=== PATIENT | female | born 1965 | race African-American/Black ===

== ENCOUNTER 2016-10-28 11:21 | Emergency (ER) | payer MEDICAID ==
[~2016-10-28] VITALS: Ht 157.5 cm; Wt 145.0 kg
[2016-10-28] VITALS (7 sets, daily range): BP systolic 153–209; BP diastolic 91–142; PULSE 106–140; RESP 12–24; TEMP 98.8; O2SAT 98–100
[~2016-10-28 11:21] MED LIST: AMLO10TA2 PO; CLON0.2T PO; COLY4000S PO; CYCL1TAB29 PO; HYDR25TA35 PO; METO-309 PO; MOBI15TA PO; PERC7.5T13 PO; PRIL10CA PO; PROM25TA5 PO; TRAM50TA PO; ULTR50TA5 PO; VENTAER INH
[2016-10-28] MEDS ORDERED: cloNIDine HCL 0.2 MG TAB PO ONE (11:45)
[2016-10-28] MEDS ORDERED: KETOROLAC TROMETHAMINE 60 MG/2 ML (IM) VIAL IM ONE (11:45)
--- NOTE | 2016-10-28 11:48 | PD ---
HPI Chief Complaint: Wound/Suture/Staple Re-Check Time Seen by Provider: 11:32 Travel History International Travel<30 days: No Contact w/Intl Traveler<30days: No Traveled to known affect area: No History of Present Illness HPI Patient is a 51-year-old female well known to myself who presents the emergency department for wound check. In the end of 2015, proximal leg 1.5 months ago patient had a microperforation of her previous jejunal anastomosis and was admitted for pneumoperitoneum underwent exploratory laparotomy and incisional hernia repair. Patient postoperative course complicated by dehiscence of the skin in the mid abdomen, likely due to her morbid obesity. Her fashion has remained intact. Patient has been seen multiple times in our emergency department over the course the last month for pain at her surgical dehiscence site. Seen previously by myself, Dr. Gallego and treated with dalvance for possible infection at her dehiscence site. Patient states that the area is getting larger and she has pain when she tries to do dressing changes at home. No fevers or chills. Patient states that she's been out of her clonidine for several days and was notably hypertensive and tachycardic in triage. PFSH Past Medical History Arthritis: Yes Blood Disorders: No Anxiety: Yes Depression: Yes Heart Rhythm Problems: No Cancer: No Cardiovascular Problems: Yes High Cholesterol: Yes Chest Pain: Yes Congestive Heart Failure: Yes COPD: Yes (Wears Home 02 ) Cerebrovascular Accident: Yes ("slight" stroke) Diminished Hearing: No Endocrine: No Gastrointestinal Disorders: Yes (MORBID OBESITY) GERD: Yes Genitourinary: Yes (Polyuria) Hiatal Hernia: Yes Hypertension: Yes Immune Disorder: No Inguinal Hernia: Yes Implanted Vascular Access Dvce: No Musculoskeletal: Yes Neurologic: Yes (Stroke 2003) Psychiatric: Yes Reproductive: No Respiratory: Yes Immunizations Current: No Sickle Cell Disease: No Thyroid Disease: No Ulcer: Yes ?: Not Menopausal: Yes : 3 Para: 3 Miscarriage: 0 : 0 Tubal Ligation: Yes Past Surgical History Abdominal Surgery: Yes (Gastric bypass, hernia repair x3) Cardiac Surgery: No Section: Yes (X3) Ear Surgery: No Endocrine Surgery: No Eye Surgery: Yes (Right eye removed from [facility] 20 years ago) Genitourinary Surgery: No Gynecologic Surgery: Yes (C-Sectionx3, Tubal ligation) Oral Surgery: No Thoracic Surgery: No Other Surgery: Yes (GASTRIC BYPASS 1996) Social History Alcohol Use: No Tobacco Use: Yes (12ppd) Substance Use: No Allergies-Medications (Allergen,Severity, Reaction): Coded Allergies: Morphine (Verified Allergy, Severe, ITCH, 10/28/16) PT DENIES Lisinopril (Verified Allergy, Unknown, 10/28/16) Reported Meds & Prescriptions Reported Meds & Active Scripts Active Clonidine (Clonidine HCl) 0.2 Mg Tab 0.2 Mg PO TID Mobic (Meloxicam) 15 Mg Tab 15 Mg PO DAILY Percocet (Oxycodone-Acetaminophen) 7.5-325 mg Tab 1 Tab PO Q6H PRN Amlodipine (Amlodipine Besylate) 10 Mg Tab 10 Mg PO DAILY Hydralazine (Hydralazine HCl) 25 Mg Tab 25 Mg PO Q8HR Reported Ventolin Hfa 18 GM Inh (Albuterol Sulfate) 90 Mcg/Act Aer 2 Puff INH Q6H PRN Prilosec (Omeprazole) 10 Mg Cap 10 Mg PO DAILY Review of Systems ROS Limitations: Poor Historian Except as stated in HPI: all other systems reviewed are Neg Physical Exam Exam Limitations: Poor Historian Narrative GENERAL: Morbidly obese disheveled female well-appearing, similar to previous visits SKIN: Warm and dry. HEAD: Normocephalic. EYES: No scleral icterus. No injection or drainage. ENT: Mucous membranes pink and moist. NECK: Supple CARDIOVASCULAR: Tachycardic with heart rate in the 140s. This normalized quickly into the 120s well patient resting in bed. No murmur appreciated. RESPIRATORY: No accessory muscle use. GASTROINTESTINAL: Morbidly obese. Soft, nontender, nondistended. Patient has a 5.5 x 4 cm area of dehiscence on her abdomen, 3 cm deep. The wound is pink and well-perfused with good granulation tissue. No discharge, purulence. MUSCULOSKELETAL: Ambulatory without difficulty NEUROLOGICAL: Awake and alert. Normal speech. PSYCHIATRIC: Appropriate mood and affect; insight and judgment normal. Data Data Last Documented VS Vital Signs Date Time Temp Pulse Resp B/P Pulse Ox O2 Delivery O2 Flow Rate FiO2 10/28/16 14:37 117 24 153/108 99 Room Air 10/28/16 11:25 98.8 Orders Clonidine (Catapres) (10/28/16 11:45) Ketorolac Inj (Toradol Inj) (10/28/16 11:45) Electrocardiogram (10/28/16 ) Metoprolol Tartrate Inj (Lopressor Inj) (10/28/16 13:15) [facility] Medical Decision Making Medical Screen Exam Complete: Yes Emergency Medical Condition: Yes Medical Record Reviewed: Yes Differential Diagnosis 51-year-old female approximate 1.5 months status post exploratory laparotomy with dehiscence of her abdominal skin, chronic and has been present for more than a month here with persistent pain. Patient's incision actually looks really good comparative with you when I saw her in September. There is now pink granulation tissue, no evidence of purulence. The abdomen itself is obese, but nontender and similar to previous exams. Ultimately, patient does struggle with chronic pain and some drug seeking behavior making multiple references to Dilaudid on her visit today, but certainly would benefit from home health. When I saw her last a referral was made but she was unable to get this done it. She has since however had a change in health care insurance and we will attempt to arrange this again as patient would certainly benefit from home wound care. Patient is incidentally hypertensive having been out of her clonidine and tachycardic initially in the 140s but upon recheck this was in the 110s to 120s. I suspect that this is somewhat related to her pain as her abdominal examination is benign and there is no signs of overt infection. Differential includes arrhythmia, electrolyte abnormality. Narrative Course Patient placed on monitor. Given 30 mg IM Toradol, 0.2 mg clonidine/5 mg metoprolol for hypertension. Twelve-lead EKG showed sinus tachycardia, rate [address] abnormalities, normal intervals. Case management consulted and home health care referral placed for home wound care. Case management was able to arrange for home health. Patient's heart rate naturally down trended after analgesics to 106 and blood pressure normalized as well. Patient will be discharged home. Diagnosis Primary Impression: Postoperative abdominal pain Additional Impressions: Abdominal wound dehiscence Qualified Code: T81.30XA - Abdominal wound dehiscence, initial encounter Accelerated hypertension Referrals: Primary Care Physician call for appointment Additional Instructions: Home health care as prescribed. Clonidine for hypertension. Med/Other Pt SpecificInfo: Prescription(s) given Scripts Clonidine 0.2 Mg Tab0.2 Mg PO TID #90 TAB Prov:Evens,Mahi N. MD 10/28/16 Disposition: 01 DISCHARGE HOME Condition: Stable Mahi Goetz MD Oct 28, 2016 11:48 Mahi Goetz MD Oct 28, 2016 11:48
--- NOTE | 2016-10-28 11:51 | HHI.FF ---
Face to Face Verification Diagnosis: (1) Postoperative abdominal pain (2) Wound infection after surgery (3) Uncontrolled hypertension (4) Recurrent abdominal pain (5) Morbid obesity with BMI of 60.0-69.9, adult Home Health Nursing Order: Medical education Signs/symptoms of disease process Wound care and dressing changes I have seen patient Savannah Rehman on 10/28/16. My clinical findings support the need for the requested home health care services because: Med compliance is questionable Limited ability to care for self Need for psychosocial assistance I certify that my clinical findings support that this patient is homebound because: Post-op weakness Need for psychosocial assistance Mahi Goetz MD Oct 28, 2016 11:51
[2016-10-28] MEDS ORDERED: CLON0.2T PO (13:13)
[2016-10-28] MEDS ORDERED: METOPROLOL TARTRATE 5 MG/5 ML VIAL IV PUSH ONE (13:15)
--- NOTE | 2016-10-28 17:36 | EKG ---
Date Performed: 10/28/2016 Time Performed: 11:54:25 PTAGE: 51 years EKG: SINUS TACHYCARDIA LATERAL ST/T ABNORMALITY, CONSIDER ISCHEMIA POOR R WAVE PROGRESSION ABNOR MAL ECG PREVIOUS TRACING : 06/04/2016 01.04 Compared to previous tracing, high lateral ST/T abnormality is now evident. DOCTOR: Ranjit Toro Interpretating Date/Time 10/28/2016 17:36:00
== END 2016-10-28 15:07 | disposition home or self-care (01) ==
LOC: NEPC 11:21
DX: G89.18 Other acute postprocedural pain (principal); T81.30XA Disruption of wound, unspecified, initial encounter; I10 Essential (primary) hypertension; R00.0 Tachycardia, unspecified; E78.00 Pure hypercholesterolemia, unspecified; J44.9 Chronic obstructive pulmonary disease, unspecified; I50.9 Heart failure, unspecified; E66.01 Morbid (severe) obesity due to excess calories; R94.31 Abnormal electrocardiogram [ECG] [EKG]
CPT/HCPCS: 93005; 96372; 96374; 99283; J1885

== ENCOUNTER 2016-11-04 09:38 | Emergency (ER) | payer MEDICAID ==
[~2016-11-04] VITALS: Ht 162.6 cm; Wt 140.0 kg
[~2016-11-04 09:38] MED LIST changes: -COLY4000S PO; -CYCL1TAB29 PO; -METO-309 PO; -PROM25TA5 PO; -TRAM50TA PO; -ULTR50TA5 PO
[2016-11-04 09:40] VITALS: BP 179/125; PULSE 104; RESP 18; TEMP 97.8; O2SAT 95
[2016-11-04] MEDS ORDERED: CLON0.3T PO (10:03)
--- NOTE | 2016-11-04 10:36 | PD ---
HPI Chief Complaint: Pain: Acute or Chronic Time Seen by Provider: 10:36 Travel History International Travel<30 days: No Contact w/Intl Traveler<30days: No Traveled to known affect area: No History of Present Illness HPI 51-year-old female with a history of hypertension and stroke presents to the emergency department for evaluation of left foot pain. Patient denies any injury or trauma to her foot. States she was told that she has arthritis in her foot. States that she has been taking Tylenol for her pain. She denies any fever, chills, nausea, vomiting, lightheadedness, dizziness, chest pain, shortness of breath. She is requesting "something strong" for her foot pain. She is also requesting a refill of her clonidine, states that she is out of her medication. No other complaints. PFSH Past Medical History Arthritis: Yes Blood Disorders: No Anxiety: Yes Depression: Yes Heart Rhythm Problems: No Cancer: No Cardiovascular Problems: Yes High Cholesterol: Yes Chest Pain: Yes Congestive Heart Failure: Yes COPD: Yes (Wears Home 02 ) Cerebrovascular Accident: Yes ("slight" stroke) Diminished Hearing: No Endocrine: No Gastrointestinal Disorders: Yes (MORBID OBESITY) GERD: Yes Genitourinary: Yes (Polyuria) Hiatal Hernia: Yes Hypertension: Yes Immune Disorder: No Inguinal Hernia: Yes Implanted Vascular Access Dvce: No Musculoskeletal: Yes Neurologic: Yes (Stroke 2003) Psychiatric: Yes Reproductive: No Respiratory: Yes Immunizations Current: No Sickle Cell Disease: No Thyroid Disease: No Ulcer: Yes Menopausal: Yes : 3 Para: 3 Miscarriage: 0 : 0 Tubal Ligation: Yes Past Surgical History Abdominal Surgery: Yes (Gastric bypass, hernia repair x3) Cardiac Surgery: No Section: Yes (X3) Ear Surgery: No Endocrine Surgery: No Eye Surgery: Yes (Right eye removed from [facility] 20 years ago) Genitourinary Surgery: No Gynecologic Surgery: Yes (C-Sectionx3, Tubal ligation) Oral Surgery: No Thoracic Surgery: No Other Surgery: Yes (GASTRIC BYPASS 1996) Social History Alcohol Use: No Tobacco Use: Yes (1/2ppd) Substance Use: No Allergies-Medications (Allergen,Severity, Reaction): Coded Allergies: Morphine (Verified Allergy, Severe, ITCH, 11/04/16) PT DENIES Lisinopril (Verified Allergy, Unknown, 11/04/16) Reported Meds & Prescriptions Reported Meds & Active Scripts Active Reported Clonidine (Clonidine HCl) 0.3 Mg Tab 0.3 Mg PO BID Ventolin Hfa 18 GM Inh (Albuterol Sulfate) 90 Mcg/Act Aer 2 Puff INH Q6H PRN Review of Systems Except as stated in HPI: all other systems reviewed are Neg Physical Exam Narrative GENERAL: Morbidly obese female patient in no acute distress. SKIN: Warm and dry. HEAD: Normocephalic and atraumatic. EYES: No injection, drainage, or hyphema noted. PERRLA. EOMI. ENT: No nasal drainage noted. Oropharynx is clear. NECK: Supple and the trachea is midline. CARDIOVASCULAR: Regular rate and rhythm. RESPIRATORY: Breath sounds are equal bilaterally with no accessory muscle use, wheezing, rhonchi, or crackles. MUSCULOSKELETAL: No swelling of the foot, no tenderness to palpation, full range of motion. No obvious deformities, swelling, cyanosis, or ecchymosis is present throughout the upper and lower extremities. Patient has full range of motion without any signs of neurovascular compromise. Capillary refill is within normal limits. NEUROLOGICAL: Awake, alert, and oriented. Normal speech and gait. Cranial nerves are grossly intact. Data Data Last Documented VS Vital Signs Date Time Temp Pulse Resp B/P Pulse Ox O2 Delivery O2 Flow Rate FiO2 11/04/16 09:40 97.8 104 18 179/125 95 Orders Clonidine (Catapres) (11/04/16 10:45) Naproxen (Naprosyn) (11/04/16 10:45) MDM Medical Decision Making Medical Screen Exam Complete: Yes Emergency Medical Condition: Yes Differential Diagnosis Arthritis versus arthralgia versus chronic pain versus drug seeking behavior Narrative Course 51-year-old female presents to the emergency department for evaluation of left foot pain. Patient is afebrile. She is hypertensive but admits that she did not take her medication today. She is chronically hypertensive and noncompliant with her blood pressure medication. She has no focal neurologic deficits or signs of end organ damage. She had an x-ray of her left foot done 10/12/16 which showed arthritis, no acute abnormalities. I don't see any indication to repeat x-ray imaging as she had no traumatic injury to the foot and the examination is unremarkable. She is requesting something for her pain. I did look the patient up on the [facility] prescription drug monitoring program which shows that she filled 90 tablets of Percocet 82402 milligrams on 10/22/16. I asked the patient about her Percocet and she is stating that she is out of them. I told the patient that we do not refill chronic opiate medications from the emergency department. The patient has signs of drug seeking behavior. I will give her naproxen for her pain and refill her clonidine. She is instructed to follow-up with her PCP. Diagnosis Primary Impression: Left foot pain Additional Impression: Uncontrolled hypertension Referrals: Primary Care Physician Patient Instructions: General Instructions Additional Instructions: Take medications as prescribed. Follow-up with your Primary Care Physician. Return to the ED for any acute worsening of symptoms. Med/Other Pt SpecificInfo: Prescription(s) given Scripts Naproxen 500 Mg [id number] Mg PO BID 7 Days Ref 0 Prov:Nathan Gutiérrez MD 11/04/16 Clonidine 0.2 Mg Tab0.2 Mg PO TID 7 Days Ref 0 Prov:Nathan Gutiérrez MD 11/04/16 Disposition: 01 DISCHARGE HOME Condition: Stable Narda Balbuena Nov 04, 2016 10:36
[2016-11-04] MEDS ORDERED: NAPR500T PO (10:40)
[2016-11-04] MEDS ORDERED: CLON0.2T PO (10:40)
[2016-11-04] MEDS ORDERED: NAPROXEN 500 MG TAB PO ONE (10:45)
[2016-11-04] MEDS ORDERED: cloNIDine HCL 0.2 MG TAB PO ONE (10:45)
[2016-11-05] MEDS ORDERED: ZOFR4TAB3 SL (23:51)
== END 2016-11-04 11:46 | disposition home or self-care (01) ==
LOC: NEPB 09:38
DX: M79.672 Pain in left foot (principal); I10 Essential (primary) hypertension; Z86.73 Personal history of transient ischemic attack (TIA), and cerebral infarction without residual deficits; F41.8 Other specified anxiety disorders; E78.00 Pure hypercholesterolemia, unspecified; I50.9 Heart failure, unspecified; Z91.14 Patient's other noncompliance with medication regimen
CPT/HCPCS: 99283

== ENCOUNTER 2016-11-05 19:34 | Emergency (ER) | payer MEDICAID ==
[~2016-11-05] VITALS: Ht 160 cm; Wt 180.0 kg
[~2016-11-05 19:34] MED LIST changes: -AMLO10TA2 PO; +CLON0.3T PO; -HYDR25TA35 PO; -MOBI15TA PO; +NAPR500T PO; -PERC7.5T13 PO; -PRIL10CA PO
[2016-11-05 19:48] VITALS: PULSE 122; RESP 20; TEMP 98.1; O2SAT 99
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
[2016-11-05] MEDS ORDERED: SODIUM CHLOR 0.9% 1000 ML INJ 1,000 ML IV ONE (20:15)
[2016-11-05] MEDS ORDERED: ONDANSETRON HCL 4 MG/2 ML VIAL IV ONE (20:15)
[2016-11-05] MEDS ORDERED: cloNIDine HCL 0.2 MG TAB PO ONE (20:15)
[2016-11-05] MEDS ORDERED: KETOROLAC TROMETHAMINE 30 MG/ML (IVP) VIAL IV PUSH ONE ×2 (20:30→23:00)
[2016-11-05 20:36] VITALS: BP 230/120
--- NOTE | 2016-11-05 21:08 | RADRPT ---
EXAM DATE/TIME: 11/05/2016 20:46 [facility] COMPARISON: KNEE LEFT LTD (1 OR 2VWS), June 26, 2016, 14:36. INDICATIONS : Left anterior knee pain, fell MEDICAL HISTORY : Arthritis. SURGICAL HISTORY : None. ENCOUNTER: Initial ACUITY: 1 day PAIN SCORE: 10/10 LOCATION: Left Knee FINDINGS: There is severe 3 compartment osteoarthritis, especially the patellofemoral compartment. 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 Similar findings were seen previously. CONCLUSION: Severe osteoarthritis without evidence of an acute fracture. Lobo Corona MD on November 05, 2016 at 21:05 Board Certified Radiologist. This report was verified electronically.
--- NOTE | 2016-11-05 21:10 | RADRPT ---
EXAM DATE/TIME: 11/05/2016 20:51 [facility] COMPARISON: KNEE RIGHT LTD (1 OR 2 VWS), June 26, 2016, 14:36. INDICATIONS : Right anterior knee pain, fell MEDICAL HISTORY : Arthritis. SURGICAL HISTORY : None. ENCOUNTER: Initial ACUITY: 1 day PAIN SCORE: 10/10 LOCATION: Right Knee FINDINGS: There is severe 3 compartment osteoarthritis. Marked patellofemoral osteophytosis noted but I don't s ee a fracture. There are posterior joint bodies, chronic. CONCLUSION: Severe osteoarthritis, including marked osteophytosis of the patellofemoral compartment. There are po sterior joint bodies unchanged. No acute fracture seen. Lobo Corona MD on November 05, 2016 at 21:07 Board Certified Radiologist. This report was verified electronically.
[2016-11-05 21:13] LABS: AUTOMATED NEUTROPHIL # 6.2 TH/MM3 (1.8-7.7); BASOPHIL % 0.3 % (0.0-2.0); EOSINOPHIL # 0.2 TH/MM3 (0-0.4); EOSINOPHIL % 1.4 % (0.0-4.0); HEMATOCRIT 43.7 % (35.0-46.0); LYMPH % 37.1 % (9.0-44.0); LYMPHOCYTE # 4.2 TH/MM3 (1.0-4.8); MEAN CELL VOLUME 81.3 FL (80.0-100.0); MEAN CORPUSCULAR HEMOGLOBIN 26.5 PG (27.0-34.0); MEAN CORPUSCULAR HGB CONC 32.7 % (32.0-36.0); MONO % 6.5 % (0.0-8.0); NEUT % 54.7 % (16.0-70.0); PLATELET COUNT 436 TH/MM3 (150-450); RED BLOOD COUNT 5.37 MIL/MM3 (4.00-5.30); RED CELL DISTRIBUTION WIDTH 16.7 % (11.6-17.2); WHITE BLOOD COUNT 11.3 TH/MM3 (4.0-11.0)
[2016-11-05 21:40] LABS: HEMO FLAGS AUTO DIFF
[2016-11-05 22:11] LABS: PLATELET ESTIMATE SMEAR NORMAL (NORMAL); PLATELET MORPHOLOGY NORMAL (NORMAL); SCAN/DIFF AUTO DIFF CONFIRMED
[2016-11-05 22:44] VITALS: BP 230/135; PULSE 108; RESP 20; O2SAT 99
[2016-11-05] MEDS ORDERED: PANTOPRAZOLE SODIUM 40 MG VIAL IV PUSH ONE (22:45)
[2016-11-05 22:46] LABS: BICARBONATE 19.9 MEQ/L (21.0-32.0); POTASSIUM 3.7 MEQ/L (3.5-5.1)
[2016-11-05] MEDS ORDERED: SODIUM CHLORID 0.9% 500 ML INJ 500 ML IV ONE (23:00)
[2016-11-05] MEDS ORDERED: traMADol HCL 50 MG TAB PO ONE (23:00)
[2016-11-05] MEDS ORDERED: ZOFR4TAB3 SL (23:51)
[2016-11-06] MEDS ORDERED: ONDANSETRON HCL 4 MG/2 ML VIAL IV PUSH ONE
[2016-11-06] MEDS ORDERED: CLON0.2T PO (00:04)
[2016-11-06] MEDS ORDERED: traMADol HCL 50 MG TAB PO ONE (00:15)
[2016-11-06 01:17] VITALS: BP 138/94; PULSE 99; RESP 20; O2SAT 100
== END 2016-11-06 02:33 | disposition home or self-care (01) ==
LOC: NEPC 19:34
DX: M25.562 Pain in left knee (principal); M25.561 Pain in right knee; T81.31XD Disruption of external operation (surgical) wound, not elsewhere classified, subsequent encounter; M17.0 Bilateral primary osteoarthritis of knee; E78.00 Pure hypercholesterolemia, unspecified; J44.9 Chronic obstructive pulmonary disease, unspecified; Z99.81 Dependence on supplemental oxygen; I10 Essential (primary) hypertension; I50.9 Heart failure, unspecified; Z98.84 Bariatric surgery status; Z91.14 Patient's other noncompliance with medication regimen; W18.39XA Other fall on same level, initial encounter; Y93.01 Activity, walking, marching and hiking; Y92.002 Bathroom of unspecified non-institutional (private) residence as the place of occurrence of the external cause
CPT/HCPCS: 73564; 80048; 85025; 96361; 96374; 96375; 96376; 99284; C9113; J1885; J2405; J7030; J7040

== ENCOUNTER 2016-11-11 19:41 | Emergency (ER) | payer MEDICAID ==
[~2016-11-11] VITALS: Ht 167.6 cm; Wt 145.0 kg
[~2016-11-11 19:41] MED LIST changes: +ZOFR4TAB3 SL
[2016-11-11 19:44] VITALS: BP 224/124; PULSE 100; RESP 18; TEMP 97.8; O2SAT 95
[2016-11-11] MEDS ORDERED: oxyCODONE/ACETAMINOPHEN 5 MG/325 MG TAB PO ONE (20:15)
[2016-11-11] MEDS ORDERED: CLON0.3T PO (20:35)
--- NOTE | 2016-11-11 20:35 | PD ---
HPI Chief Complaint: Pain: Acute or Chronic Time Seen by Provider: 19:57 Travel History International Travel<30 days: No Contact w/Intl Traveler<30days: No Traveled to known affect area: No History of Present Illness HPI Patient is a 51 year old female presents with recurrent abdominal pain. Patient states she has a history of abdominal wall dehiscence after an abdominal hernia repair. Patient had her surgery over a month ago now and continues to follow with her surgeon for this. She states her abdominal pain is unbearable. She is screaming and asking for pain medication right away. Patient has several similiar presentations to the emergency department for the same in the past. Patient is difficult to obtain further history from as she keeps asking for pain medication. She denies n/v/d. PFS Past Medical History Arthritis: Yes Blood Disorders: No Anxiety: Yes Depression: Yes Heart Rhythm Problems: No Cancer: No Cardiovascular Problems: Yes High Cholesterol: Yes Chest Pain: Yes Congestive Heart Failure: Yes COPD: Yes (Wears Home 02 ) Cerebrovascular Accident: Yes ("slight" stroke) Diminished Hearing: No Endocrine: No Gastrointestinal Disorders: Yes (MORBID OBESITY) GERD: Yes Genitourinary: Yes (Polyuria) Hiatal Hernia: Yes Hypertension: Yes Immune Disorder: No Inguinal Hernia: Yes Implanted Vascular Access Dvce: No Musculoskeletal: Yes Neurologic: Yes (Stroke 2003) Psychiatric: Yes Reproductive: No Respiratory: Yes Immunizations Current: No Sickle Cell Disease: No Thyroid Disease: No Ulcer: Yes ?: Unknown Menopausal: Yes : 3 Para: 3 Miscarriage: 0 : 0 Tubal Ligation: Yes Past Surgical History Abdominal Surgery: Yes (Gastric bypass, hernia repair x3) Cardiac Surgery: No Section: Yes (X3) Ear Surgery: No Endocrine Surgery: No Eye Surgery: Yes (Right eye removed from [facility] 20 years ago) Genitourinary Surgery: No Gynecologic Surgery: Yes (C-Sectionx3, Tubal ligation) Oral Surgery: No Thoracic Surgery: No Other Surgery: Yes (GASTRIC BYPASS 1996) Social History Alcohol Use: No Tobacco Use: Yes (5 cigarettes per day) Substance Use: No Allergies-Medications (Allergen,Severity, Reaction): Coded Allergies: Morphine (Verified Allergy, Severe, ITCH, 11/05/16) PT DENIES Lisinopril (Verified Allergy, Unknown, 11/05/16) Reported Meds & Prescriptions Reported Meds & Active Scripts Active Clonidine (Clonidine HCl) 0.3 Mg Tab 0.3 Mg PO BID Clonidine (Clonidine HCl) 0.2 Mg Tab 0.2 Mg PO TID Zofran Odt (Ondansetron Odt) 4 Mg Tab 4 Mg SL Q6HR PRN Naproxen 500 Mg Tab 500 Mg PO BID 7 Days Clonidine (Clonidine HCl) 0.2 Mg Tab 0.2 Mg PO TID 7 Days Reported Ventolin Hfa 18 GM Inh (Albuterol Sulfate) 90 Mcg/Act Aer 2 Puff INH Q6H PRN Review of Systems Except as stated in HPI: all other systems reviewed are Neg Physical Exam Narrative GENERAL: WD/Morbidly obese, screaming in pain. As soon as i leave the room the patient is calm and collected. SKIN: Warm and dry. HEAD: Atraumatic. Normocephalic. EYES: Pupils equal and round. No scleral icterus. No injection or drainage. ENT: No nasal bleeding or discharge. Mucous membranes pink and moist. NECK: Trachea midline. No JVD. CARDIOVASCULAR: Regular rate and rhythm. RESPIRATORY: No accessory muscle use. Clear to auscultation. Breath sounds equal bilaterally. GASTROINTESTINAL: Abdomen soft, non-tender, obese. There is a dehiscience on the superior portion of her midline abdominal scar. Approcimately 3-4 cm in length of the scar. There is no cellulitis, nor discharge, nor edema. Fairly impressive depth but peritoneum appears intact. THere is granulation tissue throughout the wound. MUSCULOSKELETAL: Extremities without clubbing, cyanosis, or edema. No obvious deformities. NEUROLOGICAL: Awake and alert. No obvious cranial nerve deficits. Motor grossly within normal limits. Five out of 5 muscle strength in the arms and legs. Normal speech. PSYCHIATRIC: Appropriate mood and affect; insight and judgment normal. Data Data Last Documented VS Vital Signs Date Time Temp Pulse Resp B/P Pulse Ox O2 Delivery O2 Flow Rate FiO2 11/11/16 20:57 92 16 190/100 96 11/11/16 19:44 97.8 Orders Oxycodone-Acetamin 5-325 Mg (Percocet (11/11/16 20:15) MDM Medical Decision Making Medical Screen Exam Complete: Yes Emergency Medical Condition: Yes Differential Diagnosis Acute on chronic abdominal pain, wound dehiscence, narcotic dependence. Narrative Course Comparison to patient's previously documented exams, wound likely unchanged. Patient initially calm, screaming when i'm in the room, and then calm when i leave. She was given percocet 10/650 po. She appears well and her abdominal exam is benign. On my revisit after percocet, her pain is much better. She is calmer now and able to tell me that there is no difference today then from her normal pain. She has no indication for further workup. She requested refill of her BP medications. BP is elevated but ROS is negative for CP/sob/dysuria/ enuresis. Patient pain is now undercontrol, her abdomen is benign. Given previous presentations likely very similar to her acute on chronic abdominal pain. She is reassured, discussed need for follow up with her surgeon and return to ED criteria. She has no indication for further workup at this time. Patient on [facility] has had a script for 30 day supply of percocet [address] filled on script from Dr. Lynch. SHe did request ultram for discharge and i am disinclined to honor her request for early refill of narcotics. Diagnosis Primary Impression: Abdominal wound dehiscence Additional Impression: Chronic pain Additional Instructions: Follow-up with Dr. Lynch, you were given a 30 day prescription of Percocet on October 22. There is no reason you should be out of this early. Any further pain medicine and needs to come from Dr. Lynch. Med/Other Pt SpecificInfo: Prescription(s) given Scripts Clonidine 0.3 Mg Tab0.3 Mg PO BID #60 TAB Ref 0 Prov:Buzz Jenkins MD 11/11/16 Disposition: 01 DISCHARGE HOME Condition: Stable Buzz Jenkins MD Nov 11, 2016 20:35
[2016-11-11 20:57] VITALS: BP 190/100
== END 2016-11-11 20:58 | disposition home or self-care (01) ==
LOC: NEPA 19:41
DX: T81.30XA Disruption of wound, unspecified, initial encounter (principal); G89.29 Other chronic pain; E78.00 Pure hypercholesterolemia, unspecified; I50.9 Heart failure, unspecified; J44.9 Chronic obstructive pulmonary disease, unspecified; K21.9 Gastro-esophageal reflux disease without esophagitis; I10 Essential (primary) hypertension; F17.210 Nicotine dependence, cigarettes, uncomplicated
CPT/HCPCS: 99284

== ENCOUNTER 2016-11-20 13:17 | Emergency (ER) | payer MEDICAID ==
[~2016-11-20] VITALS: Ht 157.5 cm; Wt 150.0 kg
[2016-11-20 13:18] VITALS: BP 221/120; PULSE 130; RESP 16; TEMP 98.9; O2SAT 98
[2016-11-20 15:03] VITALS: PULSE 120; RESP 26; O2SAT 100
--- NOTE | 2016-11-20 15:14 | PD ---
HPI Chief Complaint: Abdominal Pain Time Seen by Provider: 15:14 Travel History International Travel<30 days: No Contact w/Intl Traveler<30days: No Traveled to known affect area: No History of Present Illness HPI 51-year-old female with history of CHF, hypertension, morbid obesity, arthralgias, presents to emergency department for evaluation. Patient had hernia repair in August with wound dehiscence in September. Wound has been open and she has been to the emergency department for evaluation of abdominal pain. Patient states that she fell today and is having severe pain surrounding the site in her abdomen. She does take her head or lose consciousness. Denies recent illnesses, fever, or chills. She has no other symptoms to report. PFSH Past Medical History Arthritis: Yes Blood Disorders: No Anxiety: Yes Depression: Yes Heart Rhythm Problems: No Cancer: No Cardiovascular Problems: Yes High Cholesterol: Yes Chest Pain: Yes Congestive Heart Failure: Yes COPD: Yes (Wears Home ) Cerebrovascular Accident: Yes (cva 2006) Diminished Hearing: No Endocrine: No Gastrointestinal Disorders: Yes (MORBID OBESITY) GERD: Yes Genitourinary: Yes (Polyuria) Hiatal Hernia: Yes Hypertension: Yes Immune Disorder: No Inguinal Hernia: Yes Implanted Vascular Access Dvce: No Musculoskeletal: Yes Neurologic: Yes (Stroke 2003) Psychiatric: Yes Reproductive: No Respiratory: Yes Immunizations Current: No Sickle Cell Disease: No Thyroid Disease: No Ulcer: Yes Menopausal: Yes : 3 Para: 3 Miscarriage: 0 : 0 Tubal Ligation: Yes Past Surgical History Abdominal Surgery: Yes (Gastric bypass, hernia repair x3) Cardiac Surgery: No Section: Yes (X3) Ear Surgery: No Endocrine Surgery: No Eye Surgery: Yes (Right eye removed from [facility] 20 years ago) Genitourinary Surgery: No Gynecologic Surgery: Yes (C-Sectionx3, Tubal ligation) Oral Surgery: No Thoracic Surgery: No Other Surgery: Yes (GASTRIC BYPASS 1996) Social History Alcohol Use: No Tobacco Use: Yes (5 cigarettes per day) Substance Use: No Allergies-Medications (Allergen,Severity, Reaction): Coded Allergies: Morphine (Verified Allergy, Severe, ITCH, 11/20/16) PT DENIES Lisinopril (Verified Allergy, Unknown, 11/20/16) Reported Meds & Prescriptions Reported Meds & Active Scripts Active Clonidine (Clonidine HCl) 0.3 Mg Tab 0.3 Mg PO TID 14 Days Clonidine (Clonidine HCl) 0.3 Mg Tab 0.3 Mg PO BID Clonidine (Clonidine HCl) 0.2 Mg Tab 0.2 Mg PO TID Zofran Odt (Ondansetron Odt) 4 Mg Tab 4 Mg SL Q6HR PRN Naproxen 500 Mg Tab 500 Mg PO BID 7 Days Clonidine (Clonidine HCl) 0.2 Mg Tab 0.2 Mg PO TID 7 Days Reported Ventolin Hfa 18 GM Inh (Albuterol Sulfate) 90 Mcg/Act Aer 2 Puff INH Q6H PRN Review of Systems Except as stated in HPI: all other systems reviewed are Neg Physical Exam Narrative GENERAL: Obese female patient, in no acute distress SKIN: Warm and dry. 6 cm x 2 cm open wound of the anterior abdomen. It is approximately 2 cm deep HEAD: Atraumatic. Normocephalic. EYES: Pupils equal and round. No scleral icterus. No injection or drainage. ENT: No nasal bleeding or discharge. Mucous membranes pink and moist. NECK: Trachea midline. No JVD. CARDIOVASCULAR: Tachycardic rate and rhythm. No murmur appreciated. RESPIRATORY: No accessory muscle use. Diminished likely due to girth. Breath sounds equal bilaterally. GASTROINTESTINAL: Abdomen rotund, soft, generalized tenderness to palpation. Hepatic and splenic margins not palpable. MUSCULOSKELETAL: No obvious deformities. No clubbing. No cyanosis. No edema. NEUROLOGICAL: Awake and alert. No obvious cranial nerve deficits. Motor grossly within normal limits. Normal speech. Data Data Last Documented VS Vital Signs Date Time Temp Pulse Resp B/P Pulse Ox O2 Delivery O2 Flow Rate FiO2 11/20/16 18:05 102 22 210/92 100 11/20/16 13:18 98.9 Room Air Orders Complete Blood Count With Diff (11/20/16 15:13) Clonidine (Catapres) (11/20/16 15:30) Oxycodone-Acetamin 10-325 Mg (Percocet 1 (11/20/16 17:00) Clonidine (Catapres) (11/20/16 17:00) Labs Laboratory Tests Test 11/20/16 15:25 White Blood Count 7.7 TH/MM3 Red Blood Count 5.99 MIL/MM3 Hemoglobin 15.7 GM/DL Hematocrit 49.5 % Mean Corpuscular Volume 82.6 FL Mean Corpuscular Hemoglobin 26.2 PG Mean Corpuscular Hemoglobin 31.7 % Concent Red Cell Distribution Width 16.2 % Platelet Count 254 TH/MM3 Mean Platelet Volume 10.7 FL Neutrophils (%) (Auto) 66.9 % Lymphocytes (%) (Auto) 25.1 % Monocytes (%) (Auto) 7.1 % Eosinophils (%) (Auto) 0.4 % Basophils (%) (Auto) 0.5 % Neutrophils # (Auto) 5.2 TH/MM3 Lymphocytes # (Auto) 1.9 TH/MM3 Monocytes # (Auto) 0.5 TH/MM3 Eosinophils # (Auto) 0.0 TH/MM3 Basophils # (Auto) 0.0 TH/MM3 CBC Comment DIFF FINAL Differential Comment MDM Medical Decision Making Medical Screen Exam Complete: Yes Emergency Medical Condition: Yes Medical Record Reviewed: Yes Differential Diagnosis Wound dehiscence versus muscle strain versus abdominal pain versus narcotic seeking Narrative Course 51-year-old female presents to emergency department for evaluation. Workup was initiated in triage. Once a medical bed becomes available, patient will be transferred and care assumed by the provider. Scripts Clonidine 0.3 Mg Tab0.3 Mg PO TID 14 Days Ref 0 Prov:Sal Salcido MD 11/20/16 Rossi Villalba Nov 20, 2016 15:14
[2016-11-20] MEDS ORDERED: cloNIDine HCL 0.1 MG TAB PO ONE ×2 (15:30→17:00)
[2016-11-20 15:49] LABS: AUTOMATED NEUTROPHIL # 5.2 TH/MM3 (1.8-7.7); BASOPHIL % 0.5 % (0.0-2.0); EOSINOPHIL % 0.4 % (0.0-4.0); HEMATOCRIT 49.5 % (35.0-46.0); HEMO FLAGS DIFF FINAL; LYMPH % 25.1 % (9.0-44.0); LYMPHOCYTE # 1.9 TH/MM3 (1.0-4.8); MEAN CELL VOLUME 82.6 FL (80.0-100.0); MEAN CORPUSCULAR HEMOGLOBIN 26.2 PG (27.0-34.0); MEAN CORPUSCULAR HGB CONC 31.7 % (32.0-36.0); MONO % 7.1 % (0.0-8.0); NEUT % 66.9 % (16.0-70.0); PLATELET COUNT 254 TH/MM3 (150-450); RED BLOOD COUNT 5.99 MIL/MM3 (4.00-5.30); RED CELL DISTRIBUTION WIDTH 16.2 % (11.6-17.2); WHITE BLOOD COUNT 7.7 TH/MM3 (4.0-11.0)
[2016-11-20] MEDS ORDERED: oxyCODONE/ACETAMINOPHEN 10 MG/325 MG TAB PO ONE (17:00)
--- NOTE | 2016-11-20 17:07 | PD ---
Data Data Last Documented VS Vital Signs Date Time Temp Pulse Resp B/P Pulse Ox O2 Delivery O2 Flow Rate FiO2 11/20/16 18:05 102 22 210/92 100 11/20/16 13:18 98.9 Room Air Orders Complete Blood Count With Diff (11/20/16 15:13) Clonidine (Catapres) (11/20/16 15:30) Oxycodone-Acetamin 10-325 Mg (Percocet 1 (11/20/16 17:00) Clonidine (Catapres) (11/20/16 17:00) Labs Laboratory Tests Test 11/20/16 15:25 White Blood Count 7.7 TH/MM3 Red Blood Count 5.99 MIL/MM3 Hemoglobin 15.7 GM/DL Hematocrit 49.5 % Mean Corpuscular Volume 82.6 FL Mean Corpuscular Hemoglobin 26.2 PG Mean Corpuscular Hemoglobin 31.7 % Concent Red Cell Distribution Width 16.2 % Platelet Count 254 TH/MM3 Mean Platelet Volume 10.7 FL Neutrophils (%) (Auto) 66.9 % Lymphocytes (%) (Auto) 25.1 % Monocytes (%) (Auto) 7.1 % Eosinophils (%) (Auto) 0.4 % Basophils (%) (Auto) 0.5 % Neutrophils # (Auto) 5.2 TH/MM3 Lymphocytes # (Auto) 1.9 TH/MM3 Monocytes # (Auto) 0.5 TH/MM3 Eosinophils # (Auto) 0.0 TH/MM3 Basophils # (Auto) 0.0 TH/MM3 CBC Comment DIFF FINAL Differential Comment [facility] Supervised Visit with DEVANG: Yes Narrative Course I, Dr. Salcido, have reviewed the advance practice practitioner's documentation and am in agreement, met with the patient face to face, made the diagnosis, and the medical decision making was done by me. See her note for further details. Briefly this is a 51-year-old female who has been seen in the emergency department several times complaining of chronic abdominal and leg pain, seen by me several times, who presented with a perforated bowel in August 2016 which was repaired operatively by Dr. Norton, here today stating that she is having increased abdominal pain over the site of her wound because she tripped and fell landing onto her abdomen today. She denies hitting her head or losing consciousness. No chest pain or dyspnea. Abdominal pain is epigastric over the site of her wound dehiscence from her surgery in August. She has been seen in the emergency department several times for evaluation of this chronic abdominal wound. Patient is requesting Dilaudid as well as a prescription for Percocet and clonidine. The patient usually presents to the emergency department tachycardic and hypertensive and appears to be working herself up which is likely attributing to her tachycardia. The patient's abdominal exam shows a 5.5 x 4 cm area of dehiscence on her mid/upper/anterior abdomen, 3 cm deep. The wound is pink and well-perfused with good granulation tissue. No discharge, no purulence. Her abdominal exam is otherwise benign. No peritoneal signs. Normal bowel sounds. There are no signs of injury on her exam. Patient has many drug-seeking qualities. I do not believe that there is an acute issue today based on her physical exam and do not believe that further imaging or further testing is warranted. I told her I will not be giving her dilaudid today, nor will I be giving her a prescription for Percocet. I told her I will give her one Percocet and one clonidine here and will fill her clonidine prescription. After the patient received clonidine and percocet here in the ED she is resting more comfortably, and her heart rate improved to 102. A sterile wet to dry dressing was placed to the patient's dehisced abdominal wound. I believe the patient is stable for discharge home with outpatient follow-up with her surgeon Dr. Norton this week. She was informed on when to return to the emergency department. She verbalizes understanding and agreement with plan. Diagnosis Primary Impression: Abdominal wound dehiscence Qualified Code: T81.30XA - Abdominal wound dehiscence, initial encounter Additional Impression: Abdominal pain, chronic, generalized Referrals: Hansel Norton MD 3 days Additional Instruction: Follow-up with your surgeon Dr Norton this week. Return to the emergency department for worsening symptoms or any other concerns. Scripts Clonidine 0.3 Mg Tab0.3 Mg PO TID 14 Days Ref 0 Prov:Sal Salcido MD 11/20/16 Disposition: 01 DISCHARGE HOME Condition: Stable Sal Salcido MD Nov 20, 2016 17:07
[2016-11-20] MEDS ORDERED: CLON0.3T PO (17:39)
[2016-11-20 18:05] VITALS: BP 210/92
== END 2016-11-20 18:06 | disposition home or self-care (01) ==
LOC: NEPC 13:17
DX: T81.30XA Disruption of wound, unspecified, initial encounter (principal)
CPT/HCPCS: 85025; 99284

== ENCOUNTER 2016-12-18 21:45 | Emergency (ER) | payer MEDICAID ==
[2016-12-18 21:49] VITALS: BP_SYST 184; BP_SYST 227; BP_DIAS 118; BP_DIAS 95; PULSE 91; RESP 18; TEMP 98.7; O2SAT 97
[2016-12-18 23:40] VITALS: BP 239/106; PULSE 78; RESP 18; O2SAT 100
[2016-12-19] MEDS ORDERED: ONDANSETRON HCL 4 MG/2 ML VIAL IM ONE (01:00)
[2016-12-19] MEDS ORDERED: ACETAMINOPHEN/HYDROcodone 325 MG/10 MG TAB PO ONE (01:00)
[2016-12-19] MEDS ORDERED: cloNIDine HCL 0.2 MG TAB PO ONE (01:00)
--- NOTE | 2016-12-19 01:05 | PD ---
HPI Chief Complaint: Pain: Acute or Chronic Time Seen by Provider: 23:28 Travel History International Travel<30 days: No Contact w/Intl Traveler<30days: No Traveled to known affect area: No History of Present Illness HPI The patient is a 51 year old female who presents to the [facility] emergency department with a history of abdominal pain that she reports began at 8 PM tonight. She reports that she tried taking a Tylenol PM without relief. The patient reports that she has not established with a primary care physician and is well-known to this facility related to chronic abdominal pain and poorly controlled hypertension. The patient reports that she's had nausea and vomiting 4, diarrhea 3 prior to arrival. She reports that yesterday she began to have drainage from a wound dehiscence at the top of her abdomen where she previously had an abdominal hernia repaired and a perforated viscus repaired. She did follow-up with Dr. Norton her surgeon on last Saturday. She reports that she was told that her chronic abdominal pain is likely related to the mesh pulling. She denies having any fevers or chills associated with this. The patient denies any cough, congestion, neck pain, chest pain, shortness of breath, urinary symptoms, or neurologic symptoms. [facility] Past Medical History Narrative Medical The patient's past medical history is significant for chronic abdominal pain, history of a perforated viscus status post repair and abdominal hernia repair status post wound dehiscence, followed by Dr. Norton, history of chest pain, hyperlipidemia, arthritis, acid reflux, history of a cerebrovascular accident in 2003 and 2006, history of hypertension, history of COPD, peptic ulcer disease , morbid obesity, right eye enucleation. Arthritis: Yes Blood Disorders: No Anxiety: Yes Depression: Yes Heart Rhythm Problems: No Cancer: No Cardiovascular Problems: Yes High Cholesterol: Yes Chest Pain: Yes Congestive Heart Failure: Yes COPD: Yes (Wears Home ) Cerebrovascular Accident: Yes (cva 2006) Diminished Hearing: No Endocrine: No Gastrointestinal Disorders: Yes (MORBID OBESITY) GERD: Yes Genitourinary: Yes (Polyuria) Hiatal Hernia: Yes Hypertension: Yes Immune Disorder: No Inguinal Hernia: Yes Implanted Vascular Access Dvce: No Musculoskeletal: Yes Neurologic: Yes (Stroke 2003) Psychiatric: Yes Reproductive: No Respiratory: Yes Immunizations Current: No Sickle Cell Disease: No Thyroid Disease: No Ulcer: Yes ?: Not Menopausal: Yes : 3 Para: 3 Miscarriage: 0 : 0 Tubal Ligation: Yes Past Surgical History Narrative Surgical The patient's past surgical history is significant for a gastric bypass, bilateral tubal ligation, hernia repair 3, bilateral tubal ligation, right eye enucleation, perforated viscus repair Abdominal Surgery: Yes (Gastric bypass, hernia repair x3) Cardiac Surgery: No Section: Yes (X3) Ear Surgery: No Endocrine Surgery: No Eye Surgery: Yes (Right eye removed from [facility] [place] 20 years ago) Genitourinary Surgery: No Gynecologic Surgery: Yes (C-Sectionx3, Tubal ligation) Oral Surgery: No Thoracic Surgery: No Other Surgery: Yes (GASTRIC BYPASS 1996) Social History Alcohol Use: No Tobacco Use: Yes (8 cigarettes per day) Substance Use: No Allergies-Medications (Allergen,Severity, Reaction): Coded Allergies: Morphine (Verified Allergy, Severe, ITCH, 12/18/16) PT DENIES Lisinopril (Verified Allergy, Unknown, 12/18/16) Reported Meds & Prescriptions Reported Meds & Active Scripts Active Bactrim DS (Sulfamethoxazole-Trimethoprim) 800-160 Mg Tab 1 Tab PO BID Keflex (Cephalexin) 500 Mg Cap 500 Mg PO Q6H 10 Days Clonidine (Clonidine HCl) 0.3 Mg Tab 0.3 Mg PO TID 14 Days Zofran Odt (Ondansetron Odt) 4 Mg Tab 4 Mg SL Q6HR PRN Clonidine (Clonidine HCl) 0.2 Mg Tab 0.2 Mg PO TID 7 Days Reported Ventolin Hfa 18 GM Inh (Albuterol Sulfate) 90 Mcg/Act Aer 2 Puff INH Q6H PRN Review of Systems Except as stated in HPI: all other systems reviewed are Neg General / Constitutional: No: Fever Eyes: No: Visual changes HENT: No: Headaches Cardiovascular: No: Chest Pain or Discomfort Respiratory: No: Shortness of Breath Gastrointestinal: Positive: Nausea, Vomiting, Diarrhea, Abdominal Pain, Changes in Bowel Habits, No: Hematemesis, Hematochezia, Constipation, Indigestion, Dysphagia, Loss of Appetite Genitourinary: No: Dysuria Musculoskeletal: No: Pain Skin: No Rash Neurologic: No: Weakness Psychiatric: No: Depression Endocrine: No: Polydipsia Hematologic/Lymphatic: No: Easy Bruising Physical Exam Narrative General: The patient is a well-developed well-nourished female in no acute distress. Head and Neck exam: Head is normocephalic atraumatic. Eyes: The patient has her right eye in nuclear related. Left eye pupil is reactive to light, extraocular motion is intact in the left eye. Nose: Midline septum with pink mucous membranes Mouth: Dentition unremarkable. Moist mucus membranes. Posterior oropharynx is not erythematous. No tonsillar hypertrophy. Uvula midline. Airway patent. Neck: No palpable lymphadenopathy. No nuchal rigidity. No thyromegaly. Cardiovascular: Regular rate and rhythm without murmurs, gallops, or rubs. Lungs: Clear to auscultation bilaterally. No wheezes, rhonchi, or rales. Abdomen: Soft, with drainage noted from an area of wound dehiscence at the upper aspect of her post operative wound. The drainage is then and yellow appearing. This was cultured. The patient has no surrounding wound erythema, edema, or warmth on palpation. She reports that there is some discomfort on palpation surrounding this. There is no other tenderness on palpation of the other quadrants of the abdomen. Normal bowel sounds are audible. No guarding, rebound, or rigidity. No tenderness on palpation of McBurney's point. Extremities: No clubbing, cyanosis, or edema. 2+ pulses in all 4 extremities. No calf tenderness on palpation. Back: No spinous process tenderness to palpation. No costovertebral angle tenderness to palpation. Neurologic Exam: Grossly nonfocal. Data Data Last Documented VS Vital Signs Date Time Temp Pulse Resp B/P Pulse Ox O2 Delivery O2 Flow Rate FiO2 12/19/16 04:38 84 20 178/89 12/18/16 23:40 100 Room Air 12/18/16 21:49 98.7 Orders Wound Culture And Gram Stain (12/19/16 00:23) Wound Care (12/19/16 00:23) Ondansetron Inj (Zofran Inj) (12/19/16 01:00) Clonidine (Catapres) (12/19/16 01:00) Acetamin-Hydrocod 325-10 Mg ([place] 10-32 (12/19/16 01:00) MDM Medical Decision Making Medical Screen Exam Complete: Yes Emergency Medical Condition: Yes Medical Record Reviewed: Yes Differential Diagnosis Postop recurrent wound infection, versus drainage from prior wound dehiscence. Narrative Course During the course of the patients emergency department visit, the patients history, examination, and differential diagnosis were reviewed with the patient. The patient had IV access attempted one time, however she reports that she does not want any further attempts. She is requesting pain medication by mouth. The patient will be given Zofran 4 mg IM for nausea. The patient will be given clonidine 0.2 mg by mouth 1 for hypertension. The patient will be given tramadol 50 mg by mouth 1 for pain. A wound culture was sent. The patient's blood pressure improved down into the 170s over 90s. The patient will be discharged home. The patient will be discharged home with a prescription for Bactrim DS, Keflex, Zofran for nausea, and she also requests a prescription for her clonidine. The patient was instructed regarding the importance of following up with an outpatient primary care physician as soon as possible. The patient is resting comfortably and feels better, is alert and in no distress. The patients results and examination findings were discussed with the patient. The repeat examination is unremarkable and benign. The history, exam, diagnostic testing, and current condition do not suggest any significant pathology to warrant further testing, continued ED treatment, admission, or surgical evaluation at this point. The vital signs have been stable. The patient does not have uncontrollable pain, intractable vomiting, or other significant symptoms. The patient's condition is stable and appropriate for discharge. The patient will pursue further outpatient evaluation with a primary care physician or other designated or consulting physician as indicated in the discharge instructions. The patient expressed understanding and was agreeable with this plan. Diagnosis Primary Impression: Wound infection after surgery Qualified Code: T81.4XXD - Wound infection after surgery, subsequent encounter Additional Impressions: Uncontrolled hypertension Noncompliance with medication regimen Referrals: General Surgeon 2 days Primary Care Physician 3 days Patient Instructions: General Instructions, Hypertension (ED), Wound Infection (ED) Med/Other Pt SpecificInfo: Prescription(s) given Scripts Sulfamethoxazole-Trimethoprim (Bactrim DS)800-160 Mg Tab1 Tab PO BID #20 TAB Ref 0 Prov:Maia Sainz MD 12/19/16 Cephalexin (Keflex)500 Mg [id number] Mg PO Q6H 10 Days Ref 0 Prov:Maia Sainz MD 12/19/16 Clonidine 0.3 Mg Tab0.3 Mg PO TID 14 Days Ref 0 Prov:Maia Sainz MD 12/19/16 Ondansetron Odt (Zofran Odt)4 Mg Tab4 Mg SL Q6HR PRN (Nausea/Vomiting) #7 TAB Ref 0 Prov:Maia Sainz MD 12/19/16 Disposition: 01 DISCHARGE HOME Condition: Stable Maia Sainz MD Dec 19, 2016 01:05
[2016-12-19 02:00] VITALS: BP 197/104
[2016-12-19] MEDS ORDERED: BACT800T5 PO (02:25)
[2016-12-19] MEDS ORDERED: CEPH-460 PO (02:25)
[2016-12-19] MEDS ORDERED: ZOFR4TAB3 SL (02:25)
[2016-12-19] MEDS ORDERED: CLON0.3T PO (02:25)
[2016-12-19 04:38] VITALS: BP 178/89
== END 2016-12-19 04:39 | disposition home or self-care (01) ==
LOC: NEPE 21:45
DX: T81.4XXA Infection following a procedure, initial encounter (principal); I10 Essential (primary) hypertension; R11.2 Nausea with vomiting, unspecified; R19.7 Diarrhea, unspecified; G89.29 Other chronic pain; B95.61 Methicillin susceptible Staphylococcus aureus infection as the cause of diseases classified elsewhere; B96.5 Pseudomonas (aeruginosa) (mallei) (pseudomallei) as the cause of diseases classified elsewhere; E78.00 Pure hypercholesterolemia, unspecified; Z72.0 Tobacco use; Z91.14 Patient's other noncompliance with medication regimen; Y83.8 Other surgical procedures as the cause of abnormal reaction of the patient, or of later complication, without mention of misadventure at the time of the procedure
CPT/HCPCS: 86403; 87070; 87077; 87186; 96372; 99284; J2405

== ENCOUNTER 2017-02-10 07:52 | Emergency (ER) | payer MEDICAID ==
[~2017-02-10] VITALS: Ht 157.5 cm; Wt 140.5 kg
[~2017-02-10 07:52] MED LIST changes: +BACT800T5 PO; +CEPH-460 PO; -NAPR500T PO
[2017-02-10 08:01] VITALS: BP 189/102; PULSE 70; RESP 24; TEMP 97.9; O2SAT 97
[2017-02-10 08:08] VITALS: BP 188/100
[2017-02-10] MEDS ORDERED: cloNIDine HCL 0.3 MG TAB PO ONE (09:00)
[2017-02-10] MEDS ORDERED: oxyCODONE/ACETAMINOPHEN 5 MG/325 MG TAB PO ONE ×2 (09:00→10:45)
--- NOTE | 2017-02-10 09:21 | RADRPT ---
EXAM DATE/TIME: 02/10/2017 09:07 [place] COMPARISON: CHEST SINGLE AP, September 04, 2016, 15:43. CHEST SINGLE AP, September 05, 2016, 3:18. CT ABDOMEN & P MIR W CONTRAST, September 17, 2016, 8:11. INDICATIONS : Short of breath MEDICAL HISTORY : None. Hypertension. Hernia. Gastroesophageal reflux disease SURGICAL HISTORY : None. Gastric bypass ENCOUNTER: Initial ACUITY: 1 day PAIN SCORE: 0/10 LOCATION: Bilateral chest FINDINGS: PA and lateral views of the chest demonstrate the lungs to be symmetrically aerated without evidence of mass, infiltrate or effusion. The cardiomediastinal contours are unremarkable. Osseous structure s are intact. CONCLUSION: No acute disease. Lobo Abernathy MD on February 10, 2017 at 9:16 Board Certified Radiologist. This report was verified electronically.
[2017-02-10 09:45] LABS: AUTOMATED NEUTROPHIL # 5.2 TH/MM3 (1.8-7.7); BASOPHIL # 0.1 TH/MM3 (0-0.2); BASOPHIL % 0.7 % (0.0-2.0); EOSINOPHIL # 0.3 TH/MM3 (0-0.4); EOSINOPHIL % 2.8 % (0.0-4.0); HEMATOCRIT 39.6 % (35.0-46.0); HEMO FLAGS DIFF FINAL; LYMPH % 37.5 % (9.0-44.0); LYMPHOCYTE # 3.6 TH/MM3 (1.0-4.8); MEAN CELL VOLUME 83.1 FL (80.0-100.0); MEAN CORPUSCULAR HEMOGLOBIN 26.6 PG (27.0-34.0); MONO % 5.5 % (0.0-8.0); NEUT % 53.5 % (16.0-70.0); PLATELET COUNT 264 TH/MM3 (150-450); RED BLOOD COUNT 4.76 MIL/MM3 (4.00-5.30); RED CELL DISTRIBUTION WIDTH 18.5 % (11.6-17.2); WHITE BLOOD COUNT 9.7 TH/MM3 (4.0-11.0)
[2017-02-10 10:20] LABS: BICARBONATE 24.3 MEQ/L (21.0-32.0)
[2017-02-10 10:25] VITALS: BP 180/84; PULSE 74; RESP 18; O2SAT 97
[2017-02-10 10:25] LABS: POTASSIUM 4.1 MEQ/L (3.5-5.1)
[2017-02-10 10:43] VITALS: BP 151/67; PULSE 75; RESP 18; O2SAT 97
[2017-02-10] MEDS ORDERED: CLON0.3T PO (11:36)
--- NOTE | 2017-02-10 11:36 | PD ---
HPI Chief Complaint: Pain: Acute or Chronic Time Seen by Provider: 08:50 Travel History International Travel<30 days: No Contact w/Intl Traveler<30days: No Traveled to known affect area: No History of Present Illness HPI Patient is a 51-year-old female who comes in complaining of pain all over. She says that she woke up this morning and had severe pain everywhere. She says the worst pains in her back and her knees. She has been here multiple times for chronic pain issues. She also comes requesting her blood pressure medicine. She says she takes 0.3 mg of clonidine. She has also been here multiple times for blood pressure medication. She says she has not been able to find a primary care doctor. She denies any injuries. She denies fever or chills. PFSH Past Medical History Arthritis: Yes Blood Disorders: No Anxiety: Yes Depression: Yes Heart Rhythm Problems: No Cancer: No Cardiovascular Problems: Yes High Cholesterol: Yes Chest Pain: Yes Congestive Heart Failure: Yes COPD: Yes (Wears Home 02 ) Cerebrovascular Accident: Yes Diminished Hearing: No Endocrine: No Gastrointestinal Disorders: Yes (MORBID OBESITY) GERD: Yes Genitourinary: Yes (Polyuria) Hiatal Hernia: Yes Heparin Induced Thrombocytopen: No Hypertension: Yes Immune Disorder: No Inguinal Hernia: Yes Implanted Vascular Access Dvce: No Musculoskeletal: Yes Neurologic: Yes (Stroke 2003) Psychiatric: Yes Reproductive: No Respiratory: Yes Immunizations Current: No Sickle Cell Disease: No Thyroid Disease: No Ulcer: Yes ?: Not Menopausal: Yes : 3 Para: 3 Miscarriage: 0 : 0 Tubal Ligation: Yes Past Surgical History Abdominal Surgery: Yes (Gastric bypass, hernia repair x3) Cardiac Surgery: No Section: Yes (X3) Ear Surgery: No Endocrine Surgery: No Eye Surgery: Yes (Right eye removed from [facility] 20 years ago) Genitourinary Surgery: No Gynecologic Surgery: Yes (C-Sectionx3, Tubal ligation) Neurologic Surgery: No Oral Surgery: No Thoracic Surgery: No Other Surgery: Yes (GASTRIC BYPASS 1996) Social History Alcohol Use: No Tobacco Use: Yes (8 cigarettes per day) Substance Use: No Allergies-Medications (Allergen,Severity, Reaction): Coded Allergies: Morphine (Verified Allergy, Severe, ITCH, 12/18/16) PT DENIES Lisinopril (Verified Allergy, Unknown, 12/18/16) Reported Meds & Prescriptions Reported Meds & Active Scripts Active Clonidine (Clonidine HCl) 0.3 Mg Tab 0.3 Mg PO TID 14 Days Bactrim DS (Sulfamethoxazole-Trimethoprim) 800-160 Mg Tab 1 Tab PO BID Keflex (Cephalexin) 500 Mg Cap 500 Mg PO Q6H 10 Days Clonidine (Clonidine HCl) 0.3 Mg Tab 0.3 Mg PO TID 14 Days Zofran Odt (Ondansetron Odt) 4 Mg Tab 4 Mg SL Q6HR PRN Clonidine (Clonidine HCl) 0.2 Mg Tab 0.2 Mg PO TID 7 Days Reported Ventolin Hfa 18 GM Inh (Albuterol Sulfate) 90 Mcg/Act Aer 2 Puff INH Q6H PRN Review of Systems Except as stated in HPI: all other systems reviewed are Neg General / Constitutional: No: Fever, Chills HENT: No: Headaches Cardiovascular: No: Chest Pain or Discomfort Respiratory: No: Cough Gastrointestinal: Positive: Abdominal Pain, No: Nausea, Vomiting Musculoskeletal: Positive: Myalgias, Pain Skin: No Rash, No Change in Pigmentation Neurologic: No: Weakness, Dizziness Physical Exam Narrative GENERAL: Awake and alert, in no acute distress. Morbidly obese. SKIN: Focused skin assessment warm/dry. Healing wound to the abdomen. HEAD: Atraumatic. Normocephalic. EYES: Pupils equal and round. No scleral icterus. ENT: Mucous membranes pink and moist. NECK: Trachea midline. No JVD. CARDIOVASCULAR: Regular rate and rhythm. No murmur appreciated. RESPIRATORY: No accessory muscle use. Clear to auscultation. Breath sounds equal bilaterally. GASTROINTESTINAL: Abdomen soft, non-tender, nondistended. MUSCULOSKELETAL: No obvious deformities. No clubbing. No cyanosis. No edema. Pulses intact, able to move all of her extremities. NEUROLOGICAL: Awake and alert. No obvious cranial nerve deficits. Motor grossly within normal limits. Normal speech. PSYCHIATRIC: Appropriate mood and affect; insight and judgment normal. Data Data Last Documented VS Vital Signs Date Time Temp Pulse Resp B/P Pulse Ox O2 Delivery O2 Flow Rate FiO2 02/10/17 11:51 76 18 160/73 99 02/10/17 10:43 Nasal Cannula 2 02/10/17 08:01 97.9 Orders Electrocardiogram (02/10/17 ) Complete Blood Count With Diff (02/10/17 08:58) Basic Metabolic Panel (Bmp) (02/10/17 08:58) Chest, Pa & Lat (02/10/17 ) Clonidine (Catapres) (02/10/17 09:00) Oxycodone-Acetamin 5-325 Mg (Percocet (02/10/17 09:00) Oxycodone-Acetamin 5-325 Mg (Percocet (02/10/17 10:45) Labs Laboratory Tests Test 02/10/17 09:25 White Blood Count 9.7 TH/MM3 Red Blood Count 4.76 MIL/MM3 Hemoglobin 12.7 GM/DL Hematocrit 39.6 % Mean Corpuscular Volume 83.1 FL Mean Corpuscular Hemoglobin 26.6 PG Mean Corpuscular Hemoglobin 32.0 % Concent Red Cell Distribution Width 18.5 % Platelet Count 264 TH/MM3 Mean Platelet Volume 10.5 FL Neutrophils (%) (Auto) 53.5 % Lymphocytes (%) (Auto) 37.5 % Monocytes (%) (Auto) 5.5 % Eosinophils (%) (Auto) 2.8 % Basophils (%) (Auto) 0.7 % Neutrophils # (Auto) 5.2 TH/MM3 Lymphocytes # (Auto) 3.6 TH/MM3 Monocytes # (Auto) 0.5 TH/MM3 Eosinophils # (Auto) 0.3 TH/MM3 Basophils # (Auto) 0.1 TH/MM3 CBC Comment DIFF FINAL Differential Comment Sodium Level 140 MEQ/L Potassium Level 4.1 MEQ/L Chloride Level 108 MEQ/L Carbon Dioxide Level 24.3 MEQ/L Anion Gap 8 MEQ/L Blood Urea Nitrogen 9 MG/DL Creatinine 0.95 MG/DL Estimat Glomerular Filtration 75 ML/MIN Rate Random Glucose 109 MG/DL Calcium Level 8.1 MG/DL [facility] Medical Decision Making Medical Screen Exam Complete: Yes Emergency Medical Condition: Yes Medical Record Reviewed: Yes Interpretation(s) ECG shows normal sinus rhythm at 71, no ST elevation or depression Differential Diagnosis Encounter for medication refilled versus chronic pain versus opiate dependence electrolyte abnormality Narrative Course Patient is a 51-year-old female comes in complaining of pain all over. She is here often for pain medicine and her blood pressure medicine. IV established, labs sent. Exam shows no abnormalities. Patient is hypertensive. Given clonidine. Given pain medicine. He forced shows patient received 90 10 mg oxycodone's on January 19 as well as 30 alprazolam's. I discussed this with the patient and told her I could not write her prescription for any more pain medicine. She is advised to follow up with whichever doctors are prescribing her these medications. Advised she really needs a primary care doctor to manage her high blood pressure. Of and a prescription for clonidine. Advised to return to the ED as needed for any worsening symptoms. Diagnosis Primary Impression: Chronic pain Qualified Code: G89.29 - Other chronic pain Additional Impression: Hypertension Qualified Code: I10 - Essential hypertension Patient Instructions: Chronic Hypertension (ED), Chronic Pain (ED), General Instructions Additional Instructions: You need to follow up with a primary care physician. Take your blood pressure medicine. Return to the ED as needed for any worsening symptoms. Scripts Clonidine 0.3 Mg Tab0.3 Mg PO TID 14 Days Ref 0 Prov:Francine Green MD 02/10/17 Disposition: 01 DISCHARGE HOME Condition: Stable Francine Green MD Feb 10, 2017 11:36
[2017-02-10 11:51] VITALS: BP 160/73
--- NOTE | 2017-02-11 14:27 | EKG ---
Date Performed: 02/10/2017 Time Performed: 08:55:42 PTAGE: 51 years EKG: Sinus rhythm NORMAL ECG Compared to prior tracing no significant change PREVIOUS TRACING : 10/28/2016 11.54 DOCTOR: Deric Prieto Interpretating Date/Time 02/11/2017 14:22:58
== END 2017-02-10 11:53 | disposition home or self-care (01) ==
LOC: NEPE 07:52
DX: G89.29 Other chronic pain (principal); I10 Essential (primary) hypertension; F17.210 Nicotine dependence, cigarettes, uncomplicated
CPT/HCPCS: 71020; 80048; 85025; 93005

== ENCOUNTER 2017-03-01 16:01 | Emergency (ER) | payer MEDICAID ==
[2017-03-01 16:17] VITALS: BP 194/111; PULSE 129; RESP 16; TEMP 98.3; O2SAT 96
[2017-03-01 16:26] VITALS: BP 233/118; PULSE 129; RESP 22; TEMP 99.3; O2SAT 99
[2017-03-01] MEDS ORDERED: CLON0.3T PO (16:50)
[2017-03-01] MEDS ORDERED: TRAM50TA PO (16:50)
[2017-03-01] MEDS ORDERED: cloNIDine HCL 0.3 MG TAB PO ONE (17:45)
[2017-03-01] MEDS ORDERED: amLODIPine BESYLATE 5 MG TAB PO ONE (17:45)
[2017-03-01] MEDS ORDERED: IBUPROFEN 600 MG TAB PO ONE (17:45)
--- NOTE | 2017-03-01 17:49 | PD ---
HPI Chief Complaint: Pain: Acute or Chronic Time Seen by Provider: 16:56 Travel History International Travel<30 days: No Contact w/Intl Traveler<30days: No Traveled to known affect area: No History of Present Illness HPI This is a 51-year-old female who who has a history chronic left lower extremity pain and opiate dependence who presents to the emergency department requesting pain medication. She reports that she has pain in her left lower extremity around her foot and ankle, constant, worse with movement, improved with rest. She's been told she has osteoarthritis in her knee and ankle in the past. She takes Percocet for this but she says she ran out. She is requesting pain medication. PFSH Past Medical History Arthritis: Yes Blood Disorders: No Anxiety: Yes Depression: Yes Heart Rhythm Problems: No Cancer: No Cardiovascular Problems: Yes High Cholesterol: Yes Chest Pain: Yes Congestive Heart Failure: Yes COPD: Yes (Wears Home 02 ) Cerebrovascular Accident: Yes Diminished Hearing: No Endocrine: No Gastrointestinal Disorders: Yes (MORBID OBESITY) GERD: Yes Genitourinary: Yes (Polyuria) Hiatal Hernia: Yes Heparin Induced Thrombocytopen: No Hypertension: Yes Immune Disorder: No Inguinal Hernia: Yes Implanted Vascular Access Dvce: No Musculoskeletal: Yes Neurologic: Yes (Stroke 2003) Psychiatric: Yes Reproductive: No Respiratory: Yes Immunizations Current: No Sickle Cell Disease: No Thyroid Disease: No Ulcer: Yes ?: Not Menopausal: Yes : 3 Para: 3 Miscarriage: 0 : 0 Tubal Ligation: Yes Past Surgical History Abdominal Surgery: Yes (Gastric bypass, hernia repair x3) Cardiac Surgery: No Section: Yes (X3) Ear Surgery: No Endocrine Surgery: No Eye Surgery: Yes (Right eye removed from [facility] 20 years ago) Genitourinary Surgery: No Gynecologic Surgery: Yes (C-Sectionx3, Tubal ligation) Neurologic Surgery: No Oral Surgery: No Thoracic Surgery: No Other Surgery: Yes (GASTRIC BYPASS 1996) Social History Alcohol Use: No Tobacco Use: Yes Substance Use: No Allergies-Medications (Allergen,Severity, Reaction): Coded Allergies: No Known Allergies (Unverified , 03/01/17) Reported Meds & Prescriptions Reported Meds & Active Scripts Active Reported Tramadol (Tramadol HCl) 50 Mg Tab 50 Mg PO Q6H PRN Clonidine (Clonidine HCl) 0.3 Mg Tab 0.3 Mg PO TID Review of Systems Except as stated in HPI: all other systems reviewed are Neg Physical Exam Narrative GENERAL: Morbidly obese SKIN: No erythema or warmth of the left lower extremity. No swelling of the left lower extremity. HEAD: Atraumatic. Normocephalic. EYES: Pupils equal and round. No injection or drainage. ENT: Moist mucous membranes NECK: Trachea midline. CARDIOVASCULAR: Regular rate and rhythm. No murmur appreciated. RESPIRATORY: Clear to auscultation. Breath sounds equal bilaterally. GASTROINTESTINAL: Abdomen soft, non-tender, nondistended. MUSCULOSKELETAL: Some pain with range of motion of the left knee and left ankle NEUROLOGICAL: Awake and alert. No obvious cranial nerve deficits. Moving all extremities. PSYCHIATRIC: Appropriate mood and affect; insight and judgment normal. Data Data Last Documented VS Vital Signs Date Time Temp Pulse Resp B/P Pulse Ox O2 Delivery O2 Flow Rate FiO2 03/01/17 18:08 120 22 252/ 99 Room Air 03/01/17 16:26 99.3 Orders Clonidine (Catapres) (03/01/17 17:45) Ibuprofen (Motrin) (03/01/17 17:45) Amlodipine (Norvasc) (03/01/17 17:45) Amlodipine (Norvasc) (03/01/17 17:45) Electrocardiogram (03/01/17 ) Lidocaine 5% Patch.12 Hr (Lidoderm 5% Pa (03/01/17 18:30) MDM Medical Decision Making Medical Screen Exam Complete: Yes Emergency Medical Condition: Yes Interpretation(s) Afebrile, tachycardia improved Differential Diagnosis Chronic pain, clonidine withdrawal, hypertensive urgency, hypertensive emergency Narrative Course This is a 51-year-old female who presents to the emergency department requesting pain medication. She has a long history of visiting this emergency department for chronic pain complaints. She just filled 90 Percocet 15 days ago. She's filled controlled substance prescriptions from multiple different providers over the past year. She has no chest pain or headache and has a normal neurologic exam. I suspect her hypertension and tachycardia are in the setting of clonidine withdrawal. I don't think clonidine is good medication for her. Here in the emergency department given a markedly elevated her blood pressure was I did give her dose clonidine as well as a dose of amlodipine. She will be discharged on amlodipine. I a told her I couldn't write her for opiate pain medications for her chronic pain complaints. I was trying to get her blood pressure further down but the patient wanted to leave and didn't want to stay because she was dissatisfied that she didn't get any pain medicine. Patient was discharged home. I can keep her against her will as she has decision-making capacity. Diagnosis Primary Impression: Chronic pain Qualified Code: G89.29 - Other chronic pain Additional Impression: Hypertension Qualified Code: I15.9 - Secondary hypertension Patient Instructions: General Instructions Additional Instructions: If you develop severe chest pain, shortness of breath, sweating, lightheadedness , dizziness or difficulty breathing return to the emergency department immediately. Followup with your primary care physician in 2-3 days if your symptoms are not resolved. Med/Other Pt SpecificInfo: Prescription(s) given Scripts Lidocaine Patch 12 HR 5 % Patch1 Patch TOPICAL DAILY PRN (PAIN) #1 BOX Ref 0 Remove patch after 12 hours Prov:Beba West MD 03/01/17 Amlodipine 5 Mg Tab5 Mg PO DAILY #10 TAB Ref 0 Prov:Beba West MD 03/01/17 Disposition: 01 DISCHARGE HOME Condition: Stable Beba West MD March 01, 2017 17:49
[2017-03-01 18:08] VITALS: BP_SYST 252; PULSE 120; RESP 22; O2SAT 99
[2017-03-01] MEDS ORDERED: LIDOCAINE HCL 5% PATCH T-DERMAL ONE (18:30)
[2017-03-01] MEDS ORDERED: AMLO5TAB2 PO (19:21)
[2017-03-01] MEDS ORDERED: LIDO1PAD52 TOPICAL (19:21)
[2017-03-01] MEDS ORDERED: PENI500T PO (19:40)
--- NOTE | 2017-03-02 13:39 | EKG ---
Date Performed: 03/01/2017 Time Performed: 18:26:28 PTAGE: 51 years EKG: SINUS TACHYCARDIA NONSPECIFIC T-WAVE ABNORMALITY Compared to previous tracing, the sinus ta chycardia and the minimal nonspecific ST-T wave changes are new. Clinical correlation advised. ABNOR MAL RHYTHM ECG PREVIOUS TRACING : 02/10/2017 08.55 DOCTOR: Milagros Trimble Interpretating Date/Time 03/02/2017 13:38:07
== END 2017-03-01 19:45 | disposition home or self-care (01) ==
LOC: NEPE 16:01
DX: G89.29 Other chronic pain (principal); I10 Essential (primary) hypertension; R00.0 Tachycardia, unspecified; E78.00 Pure hypercholesterolemia, unspecified; I50.9 Heart failure, unspecified; J44.9 Chronic obstructive pulmonary disease, unspecified; K21.9 Gastro-esophageal reflux disease without esophagitis; Z86.73 Personal history of transient ischemic attack (TIA), and cerebral infarction without residual deficits; Z72.0 Tobacco use
CPT/HCPCS: 93005

== ENCOUNTER 2017-04-12 10:37 | Emergency (ER) | payer MEDICAID ==
[~2017-04-12] VITALS: Ht 157.5 cm; Wt 140.0 kg
[~2017-04-12 10:37] MED LIST changes: +AMLO5TAB2 PO; -BACT800T5 PO; -CEPH-460 PO; -CLON0.2T PO; +LIDO1PAD52 TOPICAL; +PENI500T PO; +TRAM50TA PO; -VENTAER INH; -ZOFR4TAB3 SL
[2017-04-12 10:50] VITALS: BP 166/92; PULSE 87; RESP 20; TEMP 98.5; O2SAT 100
[2017-04-12] MEDS ORDERED: PROM25TA10 PO (10:56)
[2017-04-12] MEDS ORDERED: KETOROLAC TROMETHAMINE 60 MG/2 ML (IM) VIAL IM ONE (11:15)
--- NOTE | 2017-04-12 11:16 | PD ---
HPI Chief Complaint: Pain: Acute or Chronic Time Seen by Provider: 10:59 Travel History International Travel<30 days: No Contact w/Intl Traveler<30days: No Traveled to known affect area: No History of Present Illness HPI This is a 51 year old female who is well-known to me who presents to the emergency department reporting that she's been having a month of hip and knee pain on the right side, constant, moderate severity. She says the pain starts in her low back and radiates down the leg. She denies any numbness or weakness. She's been having some difficulty walking. She says she starts physical therapy next week. She says that she was told she had a sprain at [facility]. At home she typically takes Percocet, tramadol and clonidine for high blood pressure. She is requesting refills of these medications. PFSH Past Medical History Arthritis: Yes Blood Disorders: No Anxiety: Yes Depression: Yes Heart Rhythm Problems: No Cancer: No Cardiovascular Problems: Yes High Cholesterol: Yes Chest Pain: Yes Congestive Heart Failure: Yes COPD: Yes (Wears Home 02 ) Cerebrovascular Accident: Yes Diabetes: No (PT DENIES) Diminished Hearing: No Endocrine: No Gastrointestinal Disorders: Yes (MORBID OBESITY) GERD: Yes Genitourinary: Yes (Polyuria) Hiatal Hernia: Yes Heparin Induced Thrombocytopen: No Hypertension: Yes Immune Disorder: No Inguinal Hernia: Yes Implanted Vascular Access Dvce: No Musculoskeletal: Yes Neurologic: Yes (Stroke 2003) Psychiatric: Yes Reproductive: No Respiratory: Yes Immunizations Current: No Sickle Cell Disease: No Thyroid Disease: No Ulcer: Yes Tetanus Vaccination: > 5 Years Influenza Vaccination: No ?: Not Menopausal: Yes : 3 Para: 3 Miscarriage: 0 : 0 Tubal Ligation: Yes Past Surgical History Abdominal Surgery: Yes (Gastric bypass, hernia repair x3) Cardiac Surgery: No Section: Yes (X3) Ear Surgery: No Endocrine Surgery: No Eye Surgery: Yes (Right eye removed from [facility] 20 years ago) Genitourinary Surgery: No Gynecologic Surgery: Yes (C-Sectionx3, Tubal ligation) Neurologic Surgery: No Oral Surgery: No Thoracic Surgery: No Other Surgery: Yes (GASTRIC BYPASS 1996) Social History Alcohol Use: No Tobacco Use: Yes (1 PPD) Substance Use: No Allergies-Medications (Allergen,Severity, Reaction): Coded Allergies: No Known Allergies (Unverified , 04/12/17) Reported Meds & Prescriptions Reported Meds & Active Scripts Active Amlodipine (Amlodipine Besylate) 5 Mg Tab 5 Mg PO DAILY Reported Phenergan (Promethazine HCl) 25 Mg Tablet 25 Mg PO BID PRN Clonidine (Clonidine HCl) 0.3 Mg Tab 0.3 Mg PO TID Review of Systems Except as stated in HPI: all other systems reviewed are Neg Physical Exam Narrative GEN: morbidly obese SKIN: Focused skin assessment warm and dry. HEAD: Atraumatic. Normocephalic. EYES: Pupils equal and round. No injection or drainage. ENT: Moist mucous membranes NECK: Trachea midline. CARDIOVASCULAR: Regular rate and rhythm. No murmur appreciated. Right lower extremity is warm and well perfused. RESPIRATORY: Clear to auscultation. Breath sounds equal bilaterally. GASTROINTESTINAL: Abdomen soft, non-tender, nondistended. MUSCULOSKELETAL: Some pain with flexion at the right hip, full painless range of motion of the right knee. NEUROLOGICAL: Awake and alert. No obvious cranial nerve deficits. Moving all extremities. PSYCHIATRIC: Appropriate mood and affect; insight and judgment normal. Data Data Last Documented VS Vital Signs Date Time Temp Pulse Resp B/P Pulse Ox O2 Delivery O2 Flow Rate FiO2 04/12/17 10:56 88 20 04/12/17 10:50 98.5 166/92 100 Orders Ketorolac Inj (Toradol Inj) (04/12/17 11:15) [facility] Medical Decision Making Medical Screen Exam Complete: Yes Emergency Medical Condition: Yes Interpretation(s) afebrile, no tachycardia, hypertension Differential Diagnosis Hip sprain, knee sprain, sciatica, chronic pain Narrative Course This is a 51-year-old female who presents to the emergency department with chronic pain involving her right lower extremity. She is requesting refills of Percocet, tramadol and clonidine. She has multiple red flags for drug-seeking behavior. She requests pain medications by name. She has received 46 controlled substance prescriptions from 9 different physicians in the past year. She has had 22 visits to our emergency department for pain related complaints. I don't think refilling her pain medication or her clonidine which is not an ideal antihypertensive will benefit this patient. I think she most benefit from follow-up with a primary care physician. She was given a referral to [facility] and was given an IM injection of Toradol. Patient will be discharged home. Diagnosis Primary Impression: Chronic pain Qualified Code: G89.29 - Other chronic pain Patient Instructions: General Instructions Additional Instructions: If you develop severe chest pain, shortness of breath, sweating, lightheadedness , dizziness or difficulty breathing return to the emergency department immediately. Followup with your primary care physician without fail. Med/Other Pt SpecificInfo: No Change to Meds Disposition: 01 DISCHARGE HOME Condition: Stable Beba West MD Apr 12, 2017 11:16
== END 2017-04-12 11:59 | disposition home or self-care (01) ==
LOC: NEPD 10:37
DX: G89.29 Other chronic pain (principal); M25.561 Pain in right knee; M54.5 Low back pain; R26.2 Difficulty in walking, not elsewhere classified; I10 Essential (primary) hypertension; E78.00 Pure hypercholesterolemia, unspecified; E66.01 Morbid (severe) obesity due to excess calories; F17.200 Nicotine dependence, unspecified, uncomplicated; Z87.39 Personal history of other diseases of the musculoskeletal system and connective tissue; Z86.59 Personal history of other mental and behavioral disorders; Z86.79 Personal history of other diseases of the circulatory system; Z87.09 Personal history of other diseases of the respiratory system; Z87.19 Personal history of other diseases of the digestive system; Z86.69 Personal history of other diseases of the nervous system and sense organs
CPT/HCPCS: 96372; 99284; J1885

== ENCOUNTER 2017-08-08 23:27 | Inpatient (IN) | payer MEDICAID ==
[~2017-08-08] VITALS: Ht 157.5 cm; Wt 150.0 kg
[~2017-08-08 23:27] MED LIST changes: +IOHEXOL 350 MG/ML 10 ML VIAL (for RAD DIAG) IVCONTRAST ONE; -LIDO1PAD52 TOPICAL; -PENI500T PO; +PROM25TA10 PO; -TRAM50TA PO
[2017-08-08 23:34] VITALS: BP 120/57; PULSE 118; RESP 16; O2SAT 98
[2017-08-08 23:42] VITALS: BP 201/116; PULSE 89; RESP 16
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
[2017-08-09] MEDS ORDERED: SODIUM CHLORIDE 0.9% FLUSH 10 ML FLUSH IVF PRN (00:15)
[2017-08-09] MEDS ORDERED: ASPIRIN 81 MG CHEW TAB PO ONE (00:15)
[2017-08-09] MEDS: NITROGLYCERIN 0.4 MG SL 25 TABS/BTL SL SCH ×3 (00:28→00:59)
--- NOTE | 2017-08-09 00:28 | RADRPT ---
EXAM DATE/TIME: 08/08/2017 23:59 [facility] COMPARISON: CHEST PA & LAT, February 10, 2017, 9:07. INDICATIONS : Shortness of breath MEDICAL HISTORY : Hypercholesterolemia. Stroke. Hypertension. GERD, CHF, COPD, Hiatal Hernia, Inguinal Hernia SURGICAL HISTORY : section. Tubal ligation. Gastric bypass. ENCOUNTER: Initial ACUITY: 1 day PAIN SCORE: 6/10 LOCATION: Bilateral chest FINDINGS: PA and lateral views of the chest demonstrate the lungs to be symmetrically aerated without evidence of mass, infiltrate or effusion. Mild cardiomegaly. The cardiomediastinal contours are unremarkable. Osseous structures are intact. CONCLUSION: Mild cardiomegaly with clear lungs. Jaylon Manzo MD on August 09, 2017 at 0:26 Board Certified Radiologist. This report was verified electronically.
[2017-08-09 00:44] LABS: AUTOMATED NEUTROPHIL # 4.7 TH/MM3 (1.8-7.7); BASOPHIL # 0.3 TH/MM3 (0-0.2); EOSINOPHIL # 0.3 TH/MM3 (0-0.4); EOSINOPHIL % 2.8 % (0.0-4.0); HEMATOCRIT 45.3 % (35.0-46.0); HEMO FLAGS DIFF FINAL; LYMPH % 37.9 % (9.0-44.0); LYMPHOCYTE # 3.5 TH/MM3 (1.0-4.8); MEAN CELL VOLUME 85.9 FL (80.0-100.0); MEAN CORPUSCULAR HEMOGLOBIN 27.3 PG (27.0-34.0); MEAN CORPUSCULAR HGB CONC 31.8 % (32.0-36.0); MONO % 5.6 % (0.0-8.0); NEUT % 50.7 % (16.0-70.0); PLATELET COUNT 144 TH/MM3 (150-450); RED BLOOD COUNT 5.27 MIL/MM3 (4.00-5.30); RED CELL DISTRIBUTION WIDTH 17.4 % (11.6-17.2); WHITE BLOOD COUNT 9.3 TH/MM3 (4.0-11.0)
[2017-08-09] MEDS ORDERED: oxyCODONE/ACETAMINOPHEN 5 MG/325 MG TAB PO ONE (00:45)
[2017-08-09 00:56] VITALS: BP 185/121; PULSE 110
[2017-08-09 01:01] VITALS: O2SAT 96
[2017-08-09 01:03] LABS: ALT (GPT) 30 U/L (10-53); ANION GAP 7 MEQ/L (5-15); AST (GOT) 18 U/L (15-37); BLOOD UREA NITROGEN 15 MG/DL (7-18); CHLORIDE 111 MEQ/L (98-107); GLOMERULAR FILTRATION RATE 55 ML/MIN (>89); MAGNESIUM 1.8 MG/DL (1.5-2.5); POTASSIUM 3.7 MEQ/L (3.5-5.1); SODIUM (NA) 144 MEQ/L (136-145)
[2017-08-09 01:05] LABS: APTT (PATIENT) 23.3 SEC (24.3-30.1); INTERNATIONAL NORMALIZED RATIO 0.9 RATIO; PROTHROMBIN TIME - PATIENT 10.4 SEC (9.8-11.6)
[2017-08-09 01:07] LABS: ALKALINE PHOSPHATASE 117 U/L (45-117); TOTAL BILIRUBIN ADULT 0.2 MG/DL (0.2-1.0)
[2017-08-09 01:08] LABS: CREATINE KINASE 78 U/L (26-192)
[2017-08-09] MEDS ORDERED: METOPROLOL TARTRATE 5 MG/5 ML VIAL IV PUSH ONE (02:30)
[2017-08-09] MEDS ORDERED: IOHEXOL 350 MG/ML 10 ML VIAL (for RAD DIAG) IVCONTRAST ONE (02:30)
[2017-08-09 02:32] VITALS: BP 185/125
--- NOTE | 2017-08-09 03:52 | RADRPT ---
EXAM DATE/TIME: 08/09/2017 02:30 [facility] COMPARISON: CT PULMONARY ANGIOGRAM, May 10, 2015, 23:08. INDICATIONS : Chest pain, shortness of breath. IV CONTRAST: 70 cc Omnipaque 350 (iohexol) IV RADIATION DOSE: 25.94 CTDIvol (mGy) MEDICAL HISTORY : Chronic obstructive pulmonary disease. Hypertension. Cardiovascular disease SURGICAL HISTORY : None. ENCOUNTER: Initial ACUITY: 1 day PAIN SCALE: 5/10 LOCATION: chest TECHNIQUE: Volumetric scanning of the chest was performed using a pulmonary embolism protocol MIP images were re constructed. Using automated exposure control and adjustment of the mA and/or kV according to patien t size, radiation dose was kept as low as reasonably achievable to obtain optimal diagnostic quality images. DICOM format image data is available electronically for review and comparison. Follow-up recommendations for detected pulmonary nodules are based at a minimum on nodule size and pa tient risk factors according to Fleischner Society Guidelines. FINDINGS: PULMONARY ARTERIES: No filling defects are seen in the pulmonary arteries through the segmental level. LUNGS: There is no consolidation or pneumothorax . No concerning pulmonary nodule is visualized. PLEURAE: There is no pleural thickening or pleural effusion. MEDIASTINUM: There is good visualization of the great vessels of the middle mediastinum. No evidence of mediastin al or hilar adenopathy/mass. MUSCULOSKELETAL: Within normal limits for patient age. MISCELLANEOUS: The visualized upper abdominal organs demonstrate no acute abnormality. CONCLUSION: 1. No evidence for pulmonary embolism. 2. No infiltrate. Jaylon Manzo MD on August 09, 2017 at 3:49 Board Certified Radiologist. This report was verified electronically.
[2017-08-09 04:18] VITALS: BP 218/127; PULSE 90; O2SAT 98
[2017-08-09] MEDS ORDERED: NALOXONE HCL 0.4 MG/ML AMP IV PUSH PRN (04:45)
[2017-08-09] MEDS ORDERED: LABETALOL HCL 100 MG/20 ML VIAL IV PUSH PRN (04:45)
[2017-08-09] MEDS ORDERED: SODIUM CHLORIDE 0.9% FLUSH 10 ML FLUSH IV FLUSH PRN (04:45)
[2017-08-09] MEDS: hydrALAZINE HCL 20 MG/ML VIAL IV PUSH PRN ×2 (05:15→06:19)
[2017-08-09 06:26] VITALS: BP 134/75; PULSE 90
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
[2017-08-09] MEDS ORDERED: traMADol HCL 50 MG TAB PO ONE (06:45)
[2017-08-09] MEDS ORDERED: cloNIDine HCL 0.2 MG TAB PO PRN (06:45)
[2017-08-09] MEDS ORDERED: CLON0.2T PO (06:46)
--- NOTE | 2017-08-09 06:51 | HHI.DS ---
Discharge Summary Admission Date Aug 09, 2017 at 04:38 Admitting Diagnosis Chest pain, hypertensive urgency. (1) Hypertensive urgency ICD Code: I16.0 - Hypertensive urgency (2) Chest pain ICD Code: R07.9 - Chest pain, unspecified Brief History - From Admission Written by Charlotte Bolivar, acting as scribe for Dr. Chandra on 08/09/17 at 06:26. The patient is seen in the ED. She was asleep upon first entering the room. As soon as she was awakened, she began to complain of severe pain, crying, moaning and writhing on stretcher. She reports legs and feet hurting along with chest pain. Chest pain located upper right sternum radiating down right arm and accompanied by diaphoresis, not relieved by anything. Denies ever having chest pain prior to today. She states she was asleep at home and she awakened with chest pain. Then, a couple of hours later, her legs and feet began to hurt also. Symptoms described as severe. Described as floating pain. The patient states she lives with he daughter. The patient reports fever (states her daughter measured but she doesn't remember temp), nausea with vomiting, dysuria, black or red stool, cough with yellow sputum, Denies diarrhea . CBC/BMP: 08/09/17 0033 08/09/17 0033 Significant Findings Laboratory Tests Test 08/09/17 00:33 08/09/17 04:18 Mean Corpuscular Hemoglobin Concent 31.8 % (32.0-36.0) Red Cell Distribution Width 17.4 % (11.6-17.2) Platelet Count 144 TH/MM3 (150-450) Basophils (%) (Auto) 3.0 % (0.0-2.0) Basophils # (Auto) 0.3 TH/MM3 (0-0.2) Activated Partial Thromboplast Time 23.3 SEC (24.3-30.1) Creatinine 1.24 MG/DL (0.50-1.00) Random Glucose 167 MG/DL (74-106) Albumin 3.1 GM/DL (3.4-5.0) Chloride Level 111 MEQ/L (98-107) Estimat Glomerular Filtration Rate 55 ML/MIN (>89) Troponin I LESS THAN 0.02 NG/ML Hospital Course Patient was examined at the bedside. Patient was given hydralazine IV for control of her blood pressure. She required 10 mg IV hydralazine 2 doses. Her blood pressure immediately improved. She admits that she has run out of her clonidine about 6 days ago. She reports to take clonidine 0.2 mg twice a day. Her chest pain is quite atypical. It is quite clear that patient is asking for pain medications and specifically ask me for Dilaudid. She has had multiple ER visits regarding pain control. Patient is explained Pt Condition on Discharge: Good Discharge Disposition: Discharge Home Discharge Instructions DIET: Follow Instructions for: As Tolerated, No Restrictions, Heart Healthy Diet Speech Therapy-Diet Recommends: Regular Activities you can perform: Regular-No Restrictions Jackelyn Chandra MD Aug 09, 2017 06:51
--- NOTE | 2017-08-09 06:58 | HHI.DS ---
Discharge Summary Admission Date Aug 09, 2017 at 04:38 Discharge Date: Aug 09, 2017 Admitting Diagnosis Chest pain, hypertensive urgency. (1) Hypertensive urgency ICD Code: I16.0 - Hypertensive urgency (2) Chest pain ICD Code: R07.9 - Chest pain, unspecified Procedures none Brief History - From Admission Written by Charlotte Bolivar, acting as scribe for Dr. Chandra on 08/09/17 at 06:26. The patient is seen in the ED. She was asleep upon first entering the room. As soon as she was awakened, she began to complain of severe pain, crying, moaning and writhing on stretcher. She reports legs and feet hurting along with chest pain. Chest pain located upper right sternum radiating down right arm and accompanied by diaphoresis, not relieved by anything. Denies ever having chest pain prior to today. She states she was asleep at home and she awakened with chest pain. Then, a couple of hours later, her legs and feet began to hurt also. Symptoms described as severe. Described as floating pain. The patient states she lives with he daughter. The patient reports fever (states her daughter measured but she doesn't remember temp), nausea with vomiting, dysuria, black or red stool, cough with yellow sputum, Denies diarrhea . CBC/BMP: 08/09/17 0033 08/09/17 0033 Significant Findings Laboratory Tests Test 08/09/17 00:33 08/09/17 04:18 Mean Corpuscular Hemoglobin Concent 31.8 % (32.0-36.0) Red Cell Distribution Width 17.4 % (11.6-17.2) Platelet Count 144 TH/MM3 (150-450) Basophils (%) (Auto) 3.0 % (0.0-2.0) Basophils # (Auto) 0.3 TH/MM3 (0-0.2) Activated Partial Thromboplast Time 23.3 SEC (24.3-30.1) Creatinine 1.24 MG/DL (0.50-1.00) Random Glucose 167 MG/DL (74-106) Albumin 3.1 GM/DL (3.4-5.0) Chloride Level 111 MEQ/L (98-107) Estimat Glomerular Filtration Rate 55 ML/MIN (>89) Troponin I LESS THAN 0.02 NG/ML Hospital Course Patient is examined at the bedside. Patient was noted to be sleeping upon my arrival. However immediately as soon as I wake her up, patient is moaning about her pain. She has had general malaise pains in her bilateral arms, back, lower extremities , and reports of chest pain which is right-sided which radiates to her right shoulders. She is morbidly obese. Her blood pressure cough is obviously not fitting well on her arms properly. This was suggested and remeasured. She received hydralazine 10 mg IV 2 doses by my orders. Within this 2 doses, her blood pressure normalized to acceptable level. Patient denies any headaches. Denies any nausea/vomiting. She was asking for pain medications by name stated she would really like to have Dilaudid. She is explained that we would not be using pain medications with objective proof that she is having pain. I have advised her also that she has had multiple pain prescriptions from different doctors as outpatient. She is advised to return to her pain management doctors for this. She is offered tramadol which is her home and a 1 times dose. I have explained to her that my plan is to discharge her. She requested for clonidine prescription upon discharge. She is agreeable to discharge and was agreeable with tramadol for her pain management for 1 times dose. Therefore patient will be discharged. Clonidine 0.2 mg by mouth twice a day written for prescription. Pt Condition on Discharge: Good Discharge Disposition: Discharge Home Discharge Time: <= 30 minutes Discharge Instructions DIET: Follow Instructions for: As Tolerated, No Restrictions, Heart Healthy Diet Speech Therapy-Diet Recommends: Regular Activities you can perform: Regular-No Restrictions Jackelyn Chandra MD Aug 09, 2017 06:58
[2017-08-09] MEDS ORDERED: SODIUM CHLORIDE 0.9% FLUSH 10 ML FLUSH IV FLUSH SCH (09:00)
--- NOTE | 2017-08-09 21:24 | EKG ---
Date Performed: 08/08/2017 Time Performed: 23:37:49 PTAGE: 52 years EKG: SINUS TACHYCARDIA POSSIBLE LEFT ATRIAL ENLARGEMENT ABNORMAL RHYTHM ECG NO PREVIOUS TRACING DOCTOR: Gerardo Espana Interpretating Date/Time 08/09/2017 21:24:14
== END 2017-08-09 07:00 | disposition home or self-care (01) | DRG 313 ==
LOC: NEPE 23:27 → NEDA 08-09 04:36 → OBSVTOIN 08-09 04:38
PROVIDERS: ADMIT Hospitalist; ATTEND Hospitalist
DX: R07.89 Other chest pain (principal); I50.9 Heart failure, unspecified; Z99.81 Dependence on supplemental oxygen; I11.0 Hypertensive heart disease with heart failure; Z68.44 Body mass index [BMI] 60.0-69.9, adult; I16.0 Hypertensive urgency; J44.9 Chronic obstructive pulmonary disease, unspecified; E03.9 Hypothyroidism, unspecified; E78.00 Pure hypercholesterolemia, unspecified; F17.210 Nicotine dependence, cigarettes, uncomplicated; E66.01 Morbid (severe) obesity due to excess calories; G89.29 Other chronic pain; M79.642 Pain in left hand; M19.90 Unspecified osteoarthritis, unspecified site; K21.9 Gastro-esophageal reflux disease without esophagitis; I69.398 Other sequelae of cerebral infarction; Z98.84 Bariatric surgery status
CPT/HCPCS: 71020; 71275; 80053; 82550; 83735; 84484; 85025; 85610; 85730; 93005; 96374; J0360; Q9967

== ENCOUNTER 2017-09-22 00:24 | Inpatient (IN) | payer MEDICAID ==
[2017-09-22] VITALS (18 sets, daily range): BP systolic 126–248; BP diastolic 71–158; PULSE 72–118; RESP 19–26; TEMP 98.2–99.2; O2SAT 94–100
[~2017-09-22] VITALS: Ht 157.5 cm; Wt 153.0 kg
[~2017-09-22 00:24] MED LIST changes: -AMLO5TAB2 PO; +CLON0.2T PO; -CLON0.3T PO; -IOHEXOL 350 MG/ML 10 ML VIAL (for RAD DIAG) IVCONTRAST ONE; -PROM25TA10 PO
[2017-09-22] MEDS ORDERED: PERC5TAB12 PO (00:38)
[2017-09-22] MEDS ORDERED: oxyCODONE/ACETAMINOPHEN 5 MG/325 MG TAB PO ONE (00:45)
[2017-09-22] MEDS ORDERED: ONDANSETRON HCL 4 MG/2 ML VIAL IV PUSH ONE (00:45)
[2017-09-22] MEDS ORDERED: NITROGLYCERIN 2% OINT 1 GM PACKET TOPICAL ONE ×2 (00:45→13:00)
--- NOTE | 2017-09-22 01:17 | RADRPT ---
EXAM DATE/TIME: 09/22/2017 01:05 [facility] COMPARISON: CHEST PA & LAT, August 08, 2017, 23:59. CHEST SINGLE AP, September 05, 2016, 3:18. INDICATIONS : Sudden onset chest pain MEDICAL HISTORY : Hypercholesterolemia. Hypertension Congestive heart failure. COPD, CVA, GERD SURGICAL HISTORY : Tubal ligation. section. Gastric bypass. Hernia repair ENCOUNTER: Initial ACUITY: 1 day PAIN SCORE: 9/10 LOCATION: Bilateral chest FINDINGS: Portable AP view of the chest demonstrates a normal-sized cardiac silhouette. No effusion, consolidat ion, or pneumothorax is visualized. The bones and soft tissues demonstrate no acute abnormality. CONCLUSION: No acute cardiopulmonary abnormality is identified. Lobo Terrell MD on September 22, 2017 at 1:14 Board Certified Radiologist. This report was verified electronically.
[2017-09-22 01:37] LABS: AUTOMATED NEUTROPHIL # 9.3 TH/MM3 (1.8-7.7); BASOPHIL # 0.1 TH/MM3 (0-0.2); BASOPHIL % 0.6 % (0.0-2.0); EOSINOPHIL # 0.4 TH/MM3 (0-0.4); EOSINOPHIL % 2.6 % (0.0-4.0); HEMATOCRIT 44.2 % (35.0-46.0); HEMO FLAGS DIFF FINAL; LYMPHOCYTE # 3.4 TH/MM3 (1.0-4.8); MEAN CELL VOLUME 85.7 FL (80.0-100.0); MEAN CORPUSCULAR HEMOGLOBIN 27.2 PG (27.0-34.0); MEAN CORPUSCULAR HGB CONC 31.7 % (32.0-36.0); MONO % 6.5 % (0.0-8.0); NEUT % 66.3 % (16.0-70.0); PLATELET COUNT 255 TH/MM3 (150-450); RED BLOOD COUNT 5.15 MIL/MM3 (4.00-5.30); RED CELL DISTRIBUTION WIDTH 16.4 % (11.6-17.2)
[2017-09-22 02:02] LABS: ALT (GPT) 23 U/L (10-53); ANION GAP 8 MEQ/L (5-15); AST (GOT) 16 U/L (15-37); BICARBONATE 27.2 MEQ/L (21.0-32.0); BLOOD UREA NITROGEN 7 MG/DL (7-18); CHLORIDE 105 MEQ/L (98-107); GLOMERULAR FILTRATION RATE 85 ML/MIN (>89); MAGNESIUM 1.7 MG/DL (1.5-2.5); POTASSIUM 3.8 MEQ/L (3.5-5.1); SODIUM (NA) 140 MEQ/L (136-145)
[2017-09-22 02:05] LABS: ALKALINE PHOSPHATASE 101 U/L (45-117); TOTAL BILIRUBIN ADULT 0.4 MG/DL (0.2-1.0)
--- NOTE | 2017-09-22 02:14 | PD ---
HPI Chief Complaint: Respiratory Distress Time Seen by Provider: 00:42 Travel History International Travel<30 days: No Contact w/Intl Traveler<30days: No Traveled to known affect area: No History of Present Illness HPI 52-year-old female presents to the emergency department by EMS from home for evaluation of shortness of breath, overall body pain, chronic left knee pain, and chest pain. Patient states that she has medical disability due to clinical morbid obesity and also has history of hypertension and chronic pain syndrome. Patient states that she's been out of her medication clonidine 0.3 mg and Percocet for one week. Patient request Dilaudid for her pain. Patient has been seen frequently in the emergency department over the past several months for pain related complaints. Patient was admitted as recently as 08/09/17 for chest pain and hypertensive urgency. Patient states she gets her medications refilled to the emergency department. Patient denies other concerns or complaints. Patient does not report sudden onset thunderclap or worst ever headache of her life. Patient complaining visual disturbance. Patient does not complain of any confusion. Patient is not complaining of any new upper extremity or lower extremity numbness tingling or weakness. According to paramedics patient's lung sounds are clear and because he cannot obtain IV access did not administer any medications prior to arrival to the emergency department. Patient rates her overall pain 10 over 10 intensity and is worsened with movement PFSH Past Medical History Narrative Medical Arthritis anxiety depression hypertension dyslipidemia COPD CHF CVA arthritis chronic pain syndrome morbid obesity gastric bypass tobacco use nursing notes reviewed Arthritis: Yes Blood Disorders: No Anxiety: Yes Depression: Yes Heart Rhythm Problems: No Cancer: No Cardiovascular Problems: Yes High Cholesterol: Yes Chest Pain: Yes Congestive Heart Failure: Yes COPD: Yes (Wears Home ) Cerebrovascular Accident: Yes Diminished Hearing: No Endocrine: No Gastrointestinal Disorders: Yes (MORBID OBESITY) GERD: Yes Genitourinary: Yes (Polyuria) Hiatal Hernia: Yes Heparin Induced Thrombocytopen: No Hypertension: Yes Immune Disorder: No Inguinal Hernia: Yes Implanted Vascular Access Dvce: No Musculoskeletal: Yes Neurologic: Yes (Stroke 2003) Psychiatric: Yes Reproductive: No Respiratory: Yes Immunizations Current: No Sickle Cell Disease: No Thyroid Disease: No Ulcer: Yes Tetanus Vaccination: > 5 Years Influenza Vaccination: No ?: Not Menopausal: Yes : 3 Para: 3 Miscarriage: 0 : 0 Tubal Ligation: Yes Past Surgical History Abdominal Surgery: Yes (Gastric bypass, hernia repair x3) Arteriovenous Shunt: No Cardiac Surgery: No Section: Yes (intake.) Ear Surgery: No Endocrine Surgery: No Eye Surgery: Yes (Right eye removed from [facility] 20 years ago) Genitourinary Surgery: No Gynecologic Surgery: Yes (C-Sectionx3, Tubal ligation) Neurologic Surgery: No Oral Surgery: No Thoracic Surgery: No Other Surgery: Yes (GASTRIC BYPASS 1996) Social History Alcohol Use: No Tobacco Use: Yes (1 PPD) Substance Use: No Allergies-Medications (Allergen,Severity, Reaction): Coded Allergies: No Known Allergies (Unverified Adverse Reaction, Unknown, 09/22/17) Reported Meds & Prescriptions Reported Meds & Active Scripts Active Reported Percocet (Oxycodone-Acetaminophen) 5-325 mg Tab 1 Tab PO BID PRN Clonidine (Clonidine HCl) 0.2 Mg Tab 0.2 Mg PO BID Review of Systems Except as stated in HPI: all other systems reviewed are Neg General / Constitutional: No: Fever, Chills HENT: No: Congestion Cardiovascular: Positive: Chest Pain or Discomfort Respiratory: Positive: Shortness of Breath Gastrointestinal: No: Abdominal Pain Genitourinary: No: Pelvic Pain, Flank Pain Musculoskeletal: Positive: Myalgias, Arthralgias, Pain Skin: No Rash Neurologic: No: Weakness, Dizziness, Syncope, Focal Abnormalities, Coordination Problem, Headache, Change in Mentation, Slurred Speech, Paresthesia Psychiatric: Positive: Anxiety Hematologic/Lymphatic: No: Lymph Node Enlargement Physical Exam Narrative GENERAL: Well-developed well-nourished obese female in no acute distress but moaning about pain and stating she needs pain medication complains of pain with movement of arms or legs. GCS 15. SKIN: Warm and dry. HEAD: Atraumatic. Normocephalic. EYES: Pupils equal and round. No scleral icterus. No injection or drainage. ENT: No nasal bleeding or discharge. Mucous membranes pink and moist. NECK: Trachea midline. No JVD. CARDIOVASCULAR: Regular rate and rhythm. RESPIRATORY: No accessory muscle use. Clear to auscultation. Breath sounds equal bilaterally. GASTROINTESTINAL: Abdomen soft, non-tender, nondistended. Hepatic and splenic margins not palpable. MUSCULOSKELETAL: Extremities without clubbing, cyanosis, or edema. No obvious deformities. NEUROLOGICAL: Awake and alert. No obvious cranial nerve deficits. Motor grossly within normal limits. Five out of 5 muscle strength in the arms and legs. Normal speech. PSYCHIATRIC: Appropriate mood and affect; insight and judgment normal. Data Data Last Documented VS Vital Signs Date Time Temp Pulse Resp B/P (MAP) Pulse Ox O2 Delivery O2 Flow Rate FiO2 09/22/17 05:53 98 22 176/98 (124) 95 Room Air 09/22/17 03:00 2.00 09/22/17 00:31 99.2 Orders Orders Complete Blood Count With Diff (09/22/17 00:42) Comprehensive Metabolic Panel (09/22/17 00:42) B-Type Natriuretic Peptide (09/22/17 00:42) Act Partial Throm Time (Ptt) (09/22/17 00:42) Prothrombin Time / Inr (Pt) (09/22/17 00:42) Magnesium (Mg) (09/22/17 00:42) Ckmb (Isoenzyme) Profile (09/22/17 00:42) Troponin I (09/22/17 00:42) Urinalysis - C+S If Indicated (09/22/17 00:42) Iv Access Insert/Monitor (09/22/17 00:42) Electrocardiogram (09/22/17 00:42) Ecg Monitoring (09/22/17 00:42) Oximetry (09/22/17 00:42) Oxygen Administration (09/22/17 00:42) Chest, Single Ap (09/22/17 00:42) Nitroglycerin 2% Oint (Nitroglycerin 2% (09/22/17 00:45) Ondansetron Inj (Zofran Inj) (09/22/17 00:45) Oxycodone-Acetamin 5-325 Mg (Percocet (09/22/17 00:45) Clonidine (Catapres) (09/22/17 02:15) Labetalol Inj (Trandate Inj) (09/22/17 03:45) Hydromorphone Pf Inj (Dilaudid Pf Inj) (09/22/17 03:45) Act Partial Throm Time (Ptt) (09/22/17 04:22) Prothrombin Time / Inr (Pt) (09/22/17 04:22) Labetalol Inj (Trandate Inj) (09/22/17 05:30) Labs Laboratory Tests Test 09/22/17 01:10 09/22/17 01:55 09/22/17 04:30 White Blood Count 14.0 TH/MM3 Red Blood Count 5.15 MIL/MM3 Hemoglobin 14.0 GM/DL Hematocrit 44.2 % Mean Corpuscular Volume 85.7 FL Mean Corpuscular Hemoglobin 27.2 PG Mean Corpuscular Hemoglobin Concent 31.7 % Red Cell Distribution Width 16.4 % Platelet Count 255 TH/MM3 Mean Platelet Volume 10.3 FL Neutrophils (%) (Auto) 66.3 % Lymphocytes (%) (Auto) 24.0 % Monocytes (%) (Auto) 6.5 % Eosinophils (%) (Auto) 2.6 % Basophils (%) (Auto) 0.6 % Neutrophils # (Auto) 9.3 TH/MM3 Lymphocytes # (Auto) 3.4 TH/MM3 Monocytes # (Auto) 0.9 TH/MM3 Eosinophils # (Auto) 0.4 TH/MM3 Basophils # (Auto) 0.1 TH/MM3 CBC Comment DIFF FINAL Differential Comment Prothrombin Time 37.2 SEC 10.6 SEC Prothromb Time International Ratio 3.7 RATIO 1.0 RATIO Activated Partial Thromboplast Time GREATER THAN 277.5 SEC 21.0 SEC Blood Urea Nitrogen 7 MG/DL Creatinine 0.85 MG/DL Random Glucose 148 MG/DL Total Protein 7.5 GM/DL Albumin 3.3 GM/DL Calcium Level 9.1 MG/DL Magnesium Level 1.7 MG/DL Alkaline Phosphatase 101 U/L Aspartate Amino Transf (AST/SGOT) 16 U/L Alanine Aminotransferase (ALT/SGPT) 23 U/L Total Bilirubin 0.4 MG/DL Sodium Level 140 MEQ/L Potassium Level 3.8 MEQ/L Chloride Level 105 MEQ/L Carbon Dioxide Level 27.2 MEQ/L Anion Gap 8 MEQ/L Estimat Glomerular Filtration Rate 85 ML/MIN Total Creatine Kinase 70 U/L Troponin I 0.03 NG/ML B-Type Natriuretic Peptide 129 PG/ML Urine Color LIGHT-YELLOW Urine Turbidity HAZY Urine pH 7.0 Urine Specific [place] 1.014 Urine Protein 100 mg/dL Urine Glucose (UA) NEG mg/dL Urine Ketones NEG mg/dL Urine Occult Blood NEG Urine Nitrite NEG Urine Bilirubin NEG Urine Urobilinogen LESS THAN 2.0 MG/DL Urine Leukocyte Esterase SMALL Urine RBC 4 /hpf Urine WBC 4 /hpf Urine Squamous Epithelial Cells 9 /hpf Urine Hyaline Casts 1 /lpf Urine Mucus FEW /lpf Microscopic Urinalysis Comment CULT NOT INDICATED MDM Medical Decision Making Medical Screen Exam Complete: Yes Emergency Medical Condition: Yes Medical Record Reviewed: Yes Interpretation(s) EKG: Sinus tachycardia rate [address] elevation or injury pattern or ectopy noted Differential Diagnosis Shortness of breath exacerbation COPD CHF PE ACS NC hypertensive urgency hypertensive crisis opiate withdrawal clonidine rebound hypertension Narrative Course Patient placed on trading specialist IV access obtained specimens collected and sent for resulting patient administered Nitropaste 1 inch to chest wall Percocet 5/325 and Zofran 4 mg IV Patient up out of bed to obtain urine specimen Patient given clonidine 0.2 mg by mouth as well Patient requesting bedpan and decided to sit on the side of the bed and urinate on the floor; but was cooperative and did take her clonidine At time of recheck the pressure remains elevated labetalol 20 mg IV administered as patient remains tachycardic also for her chronic pain she is given a one-time dose of Dilaudid 1 mg IV Condition demonstrates acceptable response to labetalol however shortly thereafter patient started to trend upwards again on blood pressure and additional labetalol 20 mg administered coags reported as markedly abnormal patient does not take and anti-coagulation therapy therefore redraw was performed and values found to be in normal range Patient's case discussed in detail with medicine service for observation admission Physician Communication Physician Communication discussed patient in detail with medicine service Diagnosis Primary Impression: Hypertensive urgency Additional Impression: Noncompliance with medication regimen Admitting Information Admitting Physician Requests: Admit Anna Morales MD Sep 22, 2017 02:14
[2017-09-22] MEDS ORDERED: cloNIDine HCL 0.2 MG TAB PO ONE (02:15)
[2017-09-22 02:21] LABS: CREATINE KINASE 70 U/L (26-192)
[2017-09-22 02:32] LABS: BLOOD, URINE NEG (NEG); COMMENT (UR) CULT NOT INDICATED; CULTURE IF INDICATED CULT NOT INDICATED; GLUCOSE,URINE NEG (NEG); HYALINE CAST, URINE 1 /lpf (RARE); KETONE, URINE NEG (NEG); MUCUS URINE FEW /lpf (OCC); NITRITE,URINE NEG (NEG); SQUAMOUS EPITHELIAL CELL URINE 9 /hpf (0-5); URINE COLOR LIGHT-YELLOW (YELLW/STRAW)
[2017-09-22 02:36] LABS: INTERNATIONAL NORMALIZED RATIO 3.7 RATIO; PROTHROMBIN TIME - PATIENT 37.2 SEC (9.8-11.6)
[2017-09-22 02:39] LABS: APTT (PATIENT) GREATER THAN 277.5 SEC (24.3-30.1)
[2017-09-22] MEDS ORDERED: LABETALOL HCL 100 MG/20 ML VIAL IV PUSH ONE ×3 (03:45→13:00)
[2017-09-22] MEDS ORDERED: HYDROmorphone HCL PF 1 MG/ML VIAL IV PUSH ONE (03:45)
[2017-09-22 05:15] LABS: PROTHROMBIN TIME - PATIENT 10.6 SEC (9.8-11.6)
[2017-09-22] MEDS ORDERED: ACETAMINOPHEN/HYDROcodone 325 MG/5 MG TAB PO PRN (06:45)
[2017-09-22] MEDS ORDERED: MAGNESIUM HYDROXIDE SUSP 30 ML CUP PO PRN (06:45)
[2017-09-22] MEDS ORDERED: ACETAMINOPHEN 325 MG TAB PO PRN (06:45)
[2017-09-22] MEDS ORDERED: SODIUM CHLORIDE 0.9% FLUSH 10 ML FLUSH IV FLUSH PRN (06:45)
[2017-09-22] MEDS ORDERED: NIFEdipine 30 MG SUSTAINED RELEASE TAB PO ONE (06:45)
[2017-09-22] MEDS ORDERED: METOPROLOL TARTRATE 50 MG TAB PO ONE (06:45)
[2017-09-22] MEDS ORDERED: SENNOSIDES 8.6 MG TAB PO PRN (06:45)
[2017-09-22] MEDS ORDERED: BISACODYL 10 MG SUPP RECTAL PRN (06:45)
[2017-09-22] MEDS ORDERED: ONDANSETRON HCL 4 MG/2 ML VIAL IVP PRN (06:45)
[2017-09-22] MEDS ORDERED: LACTULOSE SYRUP 20 GM/30 ML CUP PO PRN (06:45)
[2017-09-22] MEDS: ACETAMINOPHEN/HYDROcodone 325 MG/10 MG TAB PO PRN ×3 (07:23→20:29)
[2017-09-22] MEDS: DOCUSATE SODIUM 50 MG/SENNA 8.6 MG TAB PO SCH ×2 (09:24→20:28)
[2017-09-22] MEDS: HEPARIN SODIUM - SQ 10,000 UNITS/ML VIAL SQ SCH ×2 (09:28→20:28)
[2017-09-22] MEDS: SODIUM CHLORIDE 0.9% FLUSH 10 ML FLUSH IV FLUSH SCH ×2 (09:30→20:28)
[2017-09-22] MEDS ORDERED: ENALAPRILAT 1.25 MG/ML VIAL IV PUSH ONE (09:45)
[2017-09-22] MEDS ORDERED: ENALAPRILAT 1.25 MG/ML VIAL IV PUSH PRN (09:45)
[2017-09-22] MEDS ORDERED: cloNIDine HCL 0.1 MG TAB PO ONE (11:15)
[2017-09-22] MEDS ORDERED: cloNIDine HCL 0.1 MG TAB PO PRN (11:15)
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
[2017-09-22] MEDS ORDERED: LABETALOL INJ 500 MG in SODIUM CHLORIDE 0.9% INJ 150 ML IV PRN (13:00)
[2017-09-22] MEDS ORDERED: MORPHINE SULFATE 4 MG/ML INJ IV PUSH ONE (13:00)
[2017-09-22] MEDS: METOPROLOL TARTRATE 50 MG TAB PO SCH ×2 (13:37→20:28)
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
[2017-09-22] MEDS ORDERED: CHLORHEXIDINE GLUCONATE 2 % 1 PACK (2 CLOTHS)(extra cloths) TOPICAL PRN (20:00)
[2017-09-22] MEDS: cloNIDine HCL 0.2 MG TAB PO SCH (20:28)
--- NOTE | 2017-09-22 22:20 | EKG ---
Date Performed: 09/22/2017 Time Performed: 00:46:58 PTAGE: 52 years EKG: SINUS TACHYCARDIA NONSPECIFIC T-WAVE ABNORMALITY ABNORMAL RHYTHM ECG NO PREVIOUS TRACING DOCTOR: Gerardo Espana Interpretating Date/Time 09/22/2017 22:19:08
[2017-09-23] VITALS (12 sets, daily range): BP systolic 125–188; BP diastolic 79–123; PULSE 70–87; RESP 8–33; TEMP 98.3–98.9; O2SAT 89–100
[2017-09-23] MEDS: ACETAMINOPHEN/HYDROcodone 325 MG/10 MG TAB PO PRN ×3 (01:31→20:32)
[2017-09-23] MEDS: CHLORHEXIDINE GLUCONATE 2 % 1 PACK (2 CLOTHS)(taper/protocol) TOPICAL SCH ×2 (04:00→20:33)
[2017-09-23] MEDS: METOPROLOL TARTRATE 50 MG TAB PO SCH ×3 (05:40→20:33)
[2017-09-23 05:52] LABS: AUTOMATED NEUTROPHIL # 8.2 TH/MM3 (1.8-7.7); BASOPHIL # 0.1 TH/MM3 (0-0.2); BASOPHIL % 0.9 % (0.0-2.0); EOSINOPHIL # 0.3 TH/MM3 (0-0.4); EOSINOPHIL % 2.7 % (0.0-4.0); HEMO FLAGS DIFF FINAL; LYMPH % 23.5 % (9.0-44.0); LYMPHOCYTE # 2.9 TH/MM3 (1.0-4.8); MEAN CELL VOLUME 86.6 FL (80.0-100.0); MEAN CORPUSCULAR HEMOGLOBIN 27.3 PG (27.0-34.0); MEAN CORPUSCULAR HGB CONC 31.5 % (32.0-36.0); MONO % 5.6 % (0.0-8.0); NEUT % 67.3 % (16.0-70.0); PLATELET COUNT 229 TH/MM3 (150-450); RED BLOOD COUNT 4.39 MIL/MM3 (4.00-5.30); RED CELL DISTRIBUTION WIDTH 15.9 % (11.6-17.2); WHITE BLOOD COUNT 12.2 TH/MM3 (4.0-11.0)
[2017-09-23 06:31] LABS: ALKALINE PHOSPHATASE 89 U/L (45-117); ALT (GPT) 15 U/L (10-53); ANION GAP 8 MEQ/L (5-15); AST (GOT) 8 U/L (15-37); BICARBONATE 27.9 MEQ/L (21.0-32.0); BLOOD UREA NITROGEN 7 MG/DL (7-18); CHLORIDE 102 MEQ/L (98-107); GLOMERULAR FILTRATION RATE 97 ML/MIN (>89); POTASSIUM 3.4 MEQ/L (3.5-5.1); SODIUM (NA) 138 MEQ/L (136-145); TOTAL BILIRUBIN ADULT 0.5 MG/DL (0.2-1.0)
[2017-09-23] MEDS: SODIUM CHLORIDE 0.9% FLUSH 10 ML FLUSH IV FLUSH SCH ×2 (09:00→19:58)
[2017-09-23] MEDS ORDERED: HYDROmorphone HCL PF 1 MG/ML VIAL IV PUSH ONE (09:45)
[2017-09-23] MEDS ORDERED: POTASSIUM CHLORIDE 10 MEQ CONTROLLED RELEASE TAB PO ONE (10:00)
[2017-09-23] MEDS: NIFEdipine 60 MG SUSTAINED RELEASE TAB PO SCH (10:12)
[2017-09-23] MEDS: DOCUSATE SODIUM 50 MG/SENNA 8.6 MG TAB PO SCH ×2 (10:13→20:32)
[2017-09-23] MEDS: cloNIDine HCL 0.2 MG TAB PO SCH ×2 (10:13→20:33)
[2017-09-23] MEDS: HYDROCHLOROTHIAZIDE 25 MG TAB PO SCH (11:08)
[2017-09-23] MEDS: HEPARIN SODIUM - SQ 10,000 UNITS/ML VIAL SQ SCH ×2 (11:08→20:33)
[2017-09-23] MEDS: LISINOPRIL 10 MG TAB PO SCH (11:08)
[2017-09-23] MEDS: MORPHINE SULFATE 15 MG CONTROLLED RELEASE TAB PO SCH ×2 (13:42→20:33)
--- NOTE | 2017-09-23 13:47 | HHI.PR ---
Subjective Remarks Deferred entry the patient was seen earlier at 9:45 AM. Patient is competent of headache, to be bilateral knee pain and is requesting Dilaudid for pain control. Patient complains of mild chest pain without shortness of breath. Blood pressure the time of the interview was in the 190s systolic. Objective Vitals Vital Signs Date Time Temp Pulse Resp B/P (MAP) Pulse Ox O2 Delivery O2 Flow Rate FiO2 09/23/17 06:00 72 09/23/17 04:00 98.3 72 23 125/79 (94) 100 09/23/17 04:00 Room Air 09/23/17 04:00 72 09/23/17 02:00 81 09/23/17 00:00 98.4 79 8 141/80 (100) 100 09/23/17 00:00 79 09/23/17 00:00 Room Air 09/22/17 22:00 81 09/22/17 20:00 Room Air 09/22/17 20:00 78 09/22/17 20:00 98.3 78 24 126/71 (89) 100 09/22/17 18:00 72 09/22/17 16:00 77 09/22/17 16:00 98.4 77 26 144/79 (100) 100 09/22/17 14:00 81 09/22/17 13:30 99 Nasal Cannula 2.00 I/O 09/22/17 09/22/17 09/22/17 09/23/17 09/23/17 09/23/17 07:00 15:00 23:00 07:00 15:00 23:00 Intake Total 240 ml 664 ml 240 ml Output Total 500 ml Balance 240 ml 164 ml 240 ml Intake Oral 240 ml 500 ml 240 ml IV Total 164 ml Output Urine Total 500 ml # Voids 3 4 # Bowel Movements 0 Result Diagram: 09/23/17 0500 09/23/17 0500 Imaging Last Impressions Chest X-Ray 09/22/17 004 Signed Impressions: Service Date/Time: Friday, September 22, 2017 01:05 - CONCLUSION: No acute cardiopulmonary abnormality is identified. Lobo Terrell MD Objective Remarks GENERAL: This is a well-nourished, well-developed patient, in order distress due to pain. SKIN: No rashes, ecchymoses or lesions. Cool and dry. HEAD: Atraumatic. Normocephalic. No temporal or scalp tenderness. EYES: Pupils equal round and reactive. Extraocular motions intact. No scleral icterus. No injection or drainage. ENT: Nose without bleeding, purulent drainage or septal hematoma. Throat without erythema, tonsillar hypertrophy or exudate. Uvula midline. Airway patent. NECK: Trachea midline. No JVD or lymphadenopathy. Supple, nontender, no meningeal signs. CARDIOVASCULAR: Regular rate and rhythm without murmurs, gallops, or rubs. RESPIRATORY: Clear to auscultation. Breath sounds equal bilaterally. No wheezes , rales, or rhonchi. GASTROINTESTINAL: Abdomen soft, non-tender, nondistended. No hepato-splenomegaly , or palpable masses. No guarding. MUSCULOSKELETAL: Extremities without clubbing, cyanosis, or edema. Tenderness to palpation of bilateral knees. No edema noted. No calf tenderness. Negative Homans sign bilaterally. NEUROLOGICAL: Awake and alert. Cranial nerves II through XII intact. Motor and sensory grossly within normal limits. Five out of 5 muscle strength in all muscle groups. Normal Medications and IVs Current Medications Medications (Trade) Dose Ordered Sig/Mary Route Start Time Stop Time Status Last Admin (Procardia Xl) 60 mg DAILY PO 09/23/17 09:00 09/23/17 10:12 (Lopressor) 50 mg Q8HR PO 09/22/17 14:00 09/23/17 05:40 (NS Flush) 2 ml UNSCH PRN IV FLUSH 09/22/17 06:45 (NS Flush) 2 ml BID IV FLUSH 09/22/17 09:00 09/23/17 09:00 (Zofran Inj) 4 mg Q6H PRN IVP 09/22/17 06:45 (Heparin Inj) 5,000 units Q12H SQ 09/22/17 09:00 09/23/17 11:08 (Tylenol) 650 mg Q6H PRN PO 09/22/17 06:45 ([place] 5-325 Mg) 1 tab Q4H PRN PO 09/22/17 06:45 09/22/17 18:51 ([place] 10-325 Mg) 1 tab Q4H PRN PO 09/22/17 06:45 09/23/17 05:40 (Adry-Colace) 1 tab BID PO 09/22/17 09:00 09/23/17 10:13 (Milk Of Magnesia Liq) 30 ml Q12H PRN PO 09/22/17 06:45 (Senokot) 17.2 mg Q12H PRN PO 09/22/17 06:45 (Dulcolax Supp) 10 mg DAILY PRN RECTAL 09/22/17 06:45 (Lactulose Liq) 30 ml DAILY PRN PO 09/22/17 06:45 (Vasotec Inj) 1.25 mg Q6H PRN IV PUSH 09/22/17 09:45 (Catapres) 0.1 mg Q6H PRN PO 09/22/17 11:15 (Catapres) 0.2 mg BID PO 09/22/17 12:30 09/23/17 10:13 Labetalol HCl 500 mg/Sodium Chloride 250 ml @ 60 mls/hr TITRATE PRN IV 09/22/17 13:00 09/22/17 15:13 Miscellaneous Information Patient in critical care unit? Ass... Q361D .XX 09/22/17 20:00 09/22/17 20:00 (Chlorhexidine 2% Cloth) 3 pack DAILY@04 TOPICAL 09/23/17 04:00 09/27/17 04:01 09/23/17 04:00 (Chlorhexidine 2% Cloth) 3 pack UNSCH PRN TOPICAL 09/22/17 20:00 09/27/17 19:58 (Prinivil) 10 mg DAILY PO 09/23/17 09:45 09/23/17 11:08 (Hydrodiuril) 25 mg DAILY PO 09/23/17 10:00 09/23/17 11:08 (Oramorph Sr) 15 mg Q12H PO 09/23/17 10:00 A/P Problem List: (1) Hypertensive emergency ICD Code: I16.1 - Hypertensive emergency Plan: The patient presented with hypertensive emergency is here with chest pain or shortness of breath secondary to medication noncompliance. EKG on admission and reviewed by me shows sinus tachycardia with nonspecific T-wave abnormalities, however no ST segment elevations or depressions. The patient was given several antihypertensives in the emergency department and also in the medical floor admission, however the patient's blood pressure was in the 220s systolic. Rapid response team was activated and the patient was immediately transferred to the intensive care unit and started on labetalol drip. Cardiac enzymes were monitored and negative 2. Cardiology consulted. Appreciate recommendations. Cardiology recommended continuation of nifedipine, metoprolol tartrate, clonidine and addition of growth site 25 minutes by mouth daily and lisinopril 10 mg by mouth daily. She was placed on Nitropaste initially which was later discontinued. (2) Morbid obesity with BMI of 50.0-59.9, adult ICD Code: E66.01 - Morbid (severe) obesity due to excess calories; Z68.43 - Body mass index (BMI) 50-59.9 , adult Plan: Advised weight loss. (3) Noncompliance with medication regimen ICD Code: Z91.14 - Patient's other noncompliance with medication regimen Plan: Stressed on the importance of taking medications. (4) SOB (shortness of breath) ICD Code: R06.02 - Shortness of breath Plan: Likely secondary to hypertensive emergency. Will control blood pressure as above. (5) Hypokalemia ICD Code: E87.6 - Hypokalemia Plan: Replace potassium orally. Continue to monitor BMP and replace potassium as needed. (6) Knee pain, bilateral ICD Code: M25.561 - Pain in right knee; M25.562 - Pain in left knee Plan: Patient with severe pain in bilateral knees. Upon review of medical records the patient has had knee x-rays on 2016 which showed severe bilateral osteoarthritis. The right knee x-ray also described marked osteophytosis of the patellofemoral compartment. Posterior joint bodies and change. No acute fracture. I will give 1 mg of IV Dilaudid and start the patient on long-acting Oramorph for pain control., I will also repeat knee x-rays bilaterally and consult orthopedic surgery for further recommendations. Continue [place] as well for pain control. (7) Hyperglycemia ICD Code: R73.9 - Hyperglycemia, unspecified Plan: Patient's blood sugars in the 150s. Hemoglobin A1c obtained on 05/11/15 was 5.9. I will recheck hemoglobin A1c. We'll place on SSI with insulin NovoLog and monitor Accu-Cheks. (8) Leukocytosis ICD Code: D72.829 - Elevated white blood cell count, unspecified Plan: Likely stress related. WBC 14.0 on admission, trending down and 12.2 today. Continue to monitor CBC with differential. A shunt is a febrile and without any signs of infection. Assessment and Plan DVT prophylaxis: Continue SCDs, heparin subcutaneously. Discharge Planning Okay to transfer patient out to the medical floor. Discharge pending pain control and orthopedic surgery consultation. Problem Qualifiers (1) Knee pain, bilateral: Qualified Codes: M25.561 - Pain in right knee; M25.562 - Pain in left knee; G89.29 - Other chronic pain (2) Leukocytosis: Qualified Codes: D72.829 - Elevated white blood cell count, unspecified Theodore Aleman MD Sep 23, 2017 13:47
[2017-09-23] MEDS: HYDROmorphone HCL PF 1 MG/ML VIAL IV PUSH PRN ×2 (16:25→23:11)
--- NOTE | 2017-09-23 19:51 | EKG ---
Date Performed: 09/22/2017 Time Performed: 12:48:32 PTAGE: 52 years EKG: Sinus rhythm . Lateral ST-T changes are nonspecific Since previous tracing, no significant change noted Borderline ECG PREVIOUS TRACING : 09/22/2017 00.46 DOCTOR: Kezia Linares Interpretating Date/Time 09/23/2017 19:50:56
--- NOTE | 2017-09-23 21:53 | RADRPT ---
EXAM DATE/TIME: 09/23/2017 21:16 [facility] COMPARISON: KNEE LEFT LTD (1 OR 2VWS), June 26, 2016, 14:36. INDICATIONS : Left knee pain, arthritis. MEDICAL HISTORY : None. SURGICAL HISTORY : None. ENCOUNTER: Initial ACUITY: >1 year PAIN SCORE: 10/10 LOCATION: Left knee. FINDINGS: There is very severe osteoarthritis is noted involving the patellofemoral joint and severe osteoarthr itis is noted involving the femoral tibial joint. There is no acute fracture or dislocation. CONCLUSION: 1. Very severe osteoarthritis involving the patellofemoral joint and severe osteoarthritis involving the femorotibial joint. 2. No acute fracture or dislocation. Buzz Victor MD on September 23, 2017 at 21:49 Board Certified Radiologist. This report was verified electronically.
--- NOTE | 2017-09-23 21:56 | RADRPT ---
EXAM DATE/TIME: 09/23/2017 21:21 [facility] COMPARISON: KNEE RIGHT LTD (1 OR 2 VWS), June 26, 2016, 14:36. INDICATIONS : Right knee pain, arthritis. MEDICAL HISTORY : None. SURGICAL HISTORY : None. ENCOUNTER: Initial ACUITY: >1 year PAIN SCORE: 10/10 LOCATION: Right knee. FINDINGS: Very severe osteoarthritis is noted involving the patellofemoral joint and severe osteoarthritis is n oted involving the femoral tibial joint. No acute fracture or dislocation is noted. CONCLUSION: 1. Very severe osteoarthritis involving the patellofemoral joint and severe osteoarthritis involving the femoral tibial joint. 2. No acute fracture or dislocation. Buzz Victor MD on September 23, 2017 at 21:51 Board Certified Radiologist. This report was verified electronically.
[2017-09-24] VITALS (7 sets, daily range): BP systolic 124–165; BP diastolic 66–87; PULSE 57–69; RESP 15–22; TEMP 97.9–98.7; O2SAT 97–100
[2017-09-24] MEDS: METOPROLOL TARTRATE 50 MG TAB PO SCH ×3 (05:10→20:42)
[2017-09-24] MEDS: HYDROmorphone HCL PF 1 MG/ML VIAL IV PUSH PRN ×3 (05:59→16:15)
[2017-09-24 07:04] LABS: HEMATOCRIT 41.8 % (35.0-46.0); MEAN CELL VOLUME 85.4 FL (80.0-100.0); MEAN CORPUSCULAR HEMOGLOBIN 27.3 PG (27.0-34.0); PLATELET COUNT 225 TH/MM3 (150-450); RED BLOOD COUNT 4.89 MIL/MM3 (4.00-5.30); RED CELL DISTRIBUTION WIDTH 15.7 % (11.6-17.2); REVIEW FLAG FINAL; WHITE BLOOD COUNT 10.9 TH/MM3 (4.0-11.0)
[2017-09-24] MEDS: ACETAMINOPHEN/HYDROcodone 325 MG/10 MG TAB PO PRN ×5 (07:10→22:13)
[2017-09-24 07:33] LABS: BICARBONATE 24.1 MEQ/L (21.0-32.0); POTASSIUM 4.2 MEQ/L (3.5-5.1)
[2017-09-24] MEDS: HYDROCHLOROTHIAZIDE 25 MG TAB PO SCH (08:55)
[2017-09-24] MEDS: HEPARIN SODIUM - SQ 10,000 UNITS/ML VIAL SQ SCH ×2 (08:55→20:42)
[2017-09-24] MEDS: cloNIDine HCL 0.2 MG TAB PO SCH ×2 (08:55→20:42)
[2017-09-24] MEDS: DOCUSATE SODIUM 50 MG/SENNA 8.6 MG TAB PO SCH ×2 (08:55→20:42)
[2017-09-24] MEDS: NIFEdipine 60 MG SUSTAINED RELEASE TAB PO SCH (08:55)
[2017-09-24] MEDS: LISINOPRIL 10 MG TAB PO SCH (08:55)
[2017-09-24] MEDS: SODIUM CHLORIDE 0.9% FLUSH 10 ML FLUSH IV FLUSH SCH ×2 (08:55→19:47)
[2017-09-24] MEDS: MORPHINE SULFATE 15 MG CONTROLLED RELEASE TAB PO SCH ×2 (11:08→20:42)
--- NOTE | 2017-09-24 13:22 | HHI.PR ---
Subjective Remarks c/o mild chest pain/sob with exertion c/o pain in BL knees which is improving. bp better Objective Vitals Vital Signs Date Time Temp Pulse Resp B/P (MAP) Pulse Ox O2 Delivery O2 Flow Rate FiO2 09/24/17 04:00 67 09/24/17 04:00 98.5 67 15 145/83 (103) 97 09/24/17 04:00 97 Room Air 09/24/17 00:00 98.0 69 22 140/77 (98) 99 09/24/17 00:00 99 Room Air 09/24/17 00:00 69 09/23/17 22:00 87 09/23/17 20:00 70 09/23/17 20:00 98.3 70 18 136/83 (100) 99 09/23/17 20:00 97 Room Air 09/23/17 18:00 73 09/23/17 16:00 80 09/23/17 16:00 98.6 80 21 179/104 (129) 98 09/23/17 16:00 98 Room Air 09/23/17 14:00 80 I/O 09/23/17 09/23/17 09/23/17 09/24/17 09/24/17 09/24/17 07:00 15:00 23:00 07:00 15:00 23:00 Intake Total 240 ml 500 ml Output Total 1300 ml Balance 240 ml -800 ml Intake Oral 240 ml 500 ml Output Urine Total 1300 ml # Voids 4 Result Diagram: 09/24/17 0558 09/24/17 0558 Imaging Last Impressions Knee X-Ray 09/23/17 0000 Signed Impressions: Service Date/Time: Saturday, September 23, 2017 21:21 - CONCLUSION: 1. Very severe osteoarthritis involving the patellofemoral joint and severe osteoarthritis involving the femoral tibial joint. 2. No acute fracture or dislocation. Buzz Victor MD Chest X-Ray 09/22/17 0042 Signed Impressions: Service Date/Time: Friday, September 22, 2017 01:05 - CONCLUSION: No acute cardiopulmonary abnormality is identified. Lobo Terrell MD Objective Remarks GENERAL: This is a well-nourished, well-developed patient, in order distress due to pain. SKIN: No rashes, ecchymoses or lesions. Cool and dry. HEAD: Atraumatic. Normocephalic. No temporal or scalp tenderness. EYES: Pupils equal round and reactive. Extraocular motions intact. No scleral icterus. No injection or drainage. ENT: Nose without bleeding, purulent drainage or septal hematoma. Throat without erythema, tonsillar hypertrophy or exudate. Uvula midline. Airway patent. NECK: Trachea midline. No JVD or lymphadenopathy. Supple, nontender, no meningeal signs. CARDIOVASCULAR: Regular rate and rhythm without murmurs, gallops, or rubs. RESPIRATORY: Clear to auscultation. Breath sounds equal bilaterally. No wheezes , rales, or rhonchi. GASTROINTESTINAL: Abdomen soft, non-tender, nondistended. No hepato-splenomegaly , or palpable masses. No guarding. MUSCULOSKELETAL: Extremities without clubbing, cyanosis, or edema. Tenderness to palpation of bilateral knees. No edema noted. No calf tenderness. Negative Homans sign bilaterally. NEUROLOGICAL: Awake and alert. Cranial nerves II through XII intact. Motor and sensory grossly within normal limits. Five out of 5 muscle strength in all muscle groups. Normal Medications and IVs Current Medications Medications (Trade) Dose Ordered Sig/Mary Route Start Time Stop Time Status Last Admin (Procardia Xl) 60 mg DAILY PO 09/23/17 09:00 09/24/17 08:55 (Lopressor) 50 mg Q8HR PO 09/22/17 14:00 09/24/17 05:10 (NS Flush) 2 ml UNSCH PRN IV FLUSH 09/22/17 06:45 (NS Flush) 2 ml BID IV FLUSH 09/22/17 09:00 09/24/17 08:55 (Zofran Inj) 4 mg Q6H PRN IVP 09/22/17 06:45 09/23/17 23:11 (Heparin Inj) 5,000 units Q12H SQ 09/22/17 09:00 09/24/17 08:55 (Tylenol) 650 mg Q6H PRN PO 09/22/17 06:45 ([place] 5-325 Mg) 1 tab Q4H PRN PO 09/22/17 06:45 09/22/17 18:51 ([place] 10-325 Mg) 1 tab Q4H PRN PO 09/22/17 06:45 09/24/17 08:56 (Adry-Colace) 1 tab BID PO 09/22/17 09:00 09/24/17 08:55 (Milk Of Magnesia Liq) 30 ml Q12H PRN PO 09/22/17 06:45 (Senokot) 17.2 mg Q12H PRN PO 09/22/17 06:45 (Dulcolax Supp) 10 mg DAILY PRN RECTAL 09/22/17 06:45 (Lactulose Liq) 30 ml DAILY PRN PO 09/22/17 06:45 (Vasotec Inj) 1.25 mg Q6H PRN IV PUSH 09/22/17 09:45 (Catapres) 0.1 mg Q6H PRN PO 09/22/17 11:15 (Catapres) 0.2 mg BID PO 09/22/17 12:30 09/24/17 08:55 Labetalol HCl 500 mg/Sodium Chloride 250 ml @ 60 mls/hr TITRATE PRN IV 09/22/17 13:00 09/22/17 15:13 Miscellaneous Information Patient in critical care unit? Ass... Q361D .XX 09/22/17 20:00 09/22/17 20:00 (Chlorhexidine 2% Cloth) 3 pack DAILY@04 TOPICAL 09/23/17 04:00 09/27/17 04:01 09/23/17 20:33 (Chlorhexidine 2% Cloth) 3 pack UNSCH PRN TOPICAL 09/22/17 20:00 09/27/17 19:58 (Prinivil) 10 mg DAILY PO 09/23/17 09:45 09/24/17 08:55 (Oramorph Sr) 15 mg Q12H PO 09/23/17 10:00 09/24/17 11:08 (Dilaudid Pf Inj) 1 mg Q4H PRN IV PUSH 09/23/17 16:30 09/24/17 11:08 A/P Problem List: (1) Hypertensive emergency ICD Code: I16.1 - Hypertensive emergency Plan: The patient presented with hypertensive emergency is here with chest pain or shortness of breath secondary to medication noncompliance. EKG on admission and reviewed by me shows sinus tachycardia with nonspecific T-wave abnormalities, however no ST segment elevations or depressions. The patient was given several antihypertensives in the emergency department and also in the medical floor admission, however the patient's blood pressure was in the 220s systolic. Rapid response team was activated and the patient was immediately transferred to the intensive care unit and started on labetalol drip. Cardiac enzymes were monitored and negative 2. Cardiology consulted. Appreciate recommendations. Cardiology recommended continuation of nifedipine, metoprolol tartrate, clonidine and addition of growth site 25 minutes by mouth daily and lisinopril 10 mg by mouth daily. She was placed on Nitropaste initially which was later discontinued. (2) Morbid obesity with BMI of 50.0-59.9, adult ICD Code: E66.01 - Morbid (severe) obesity due to excess calories; Z68.43 - Body mass index (BMI) 50-59.9 , adult Plan: Advised weight loss. (3) Noncompliance with medication regimen ICD Code: Z91.14 - Patient's other noncompliance with medication regimen Plan: Stressed on the importance of taking medications. (4) SOB (shortness of breath) ICD Code: R06.02 - Shortness of breath Plan: Likely secondary to hypertensive emergency. bp better. Patient with good o2 sat on room air. (5) Hypokalemia ICD Code: E87.6 - Hypokalemia Plan: Replace potassium orally. Continue to monitor BMP and replace potassium as needed. resolved (6) Knee pain, bilateral ICD Code: M25.561 - Pain in right knee; M25.562 - Pain in left knee Plan: Patient with severe pain in bilateral knees. Upon review of medical records the patient has had knee x-rays on 2016 which showed severe bilateral osteoarthritis. The right knee x-ray also described marked osteophytosis of the patellofemoral compartment. Posterior joint bodies and change. No acute fracture. I will give 1 mg of IV Dilaudid and start the patient on long-acting Oramorph for pain control., I will also repeat knee x-rays bilaterally and consult orthopedic surgery for further recommendations. Continue [place] as well for pain control. 09/24 still requiring IV Dilaudid - Increase Oramorph to 30 mg po bid, continue Percocet and IV Dilaudid for breakthrough pain. Patient will require outpatient pain management referral. Orthopedic recommendations pending. (7) Hyperglycemia ICD Code: R73.9 - Hyperglycemia, unspecified Plan: Patient's blood sugars in the 150s. Hemoglobin A1c obtained on 05/11/15 was 5.9. I will recheck hemoglobin A1c. We'll place on SSI with insulin NovoLog and monitor Accu-Cheks. (8) Leukocytosis ICD Code: D72.829 - Elevated white blood cell count, unspecified Plan: Likely stress related. WBC 14.0 on admission, trending down and 10 k today. Continue to monitor CBC with differential. Patient is a febrile and without any signs of infection. Assessment and Plan DVT prophylaxis: Continue SCDs, heparin subcutaneously. Discharge Planning Okay to transfer patient out to the medical floor. Discharge pending pain control and orthopedic surgery consultation. Problem Qualifiers (1) Knee pain, bilateral: Qualified Codes: M25.561 - Pain in right knee; M25.562 - Pain in left knee; G89.29 - Other chronic pain (2) Leukocytosis: Qualified Codes: D72.829 - Elevated white blood cell count, unspecified Theodore Aleman MD Sep 24, 2017 13:22
--- NOTE | 2017-09-24 13:26 | MB ---
cc: HORACIO OCAMPO DATE OF SERVICE 09/24/2017 CHIEF COMPLAINT Bilateral knee pain. HISTORY OF PRESENT ILLNESS The patient is a 52-year-old black female who presented to the emergency department on 09/22/2017 for chest pain and shortness of breath. She has a significant medical history of hypertension, arthritis, CHF, COPD, hypothyroidism for which she had been taking medications. She stated that she had been out of her medications for a few weeks and had been noncompliant with taking her medication. She states that she has been short of breath with chest pain. She was admitted due to those reasons. It was later found out that she had significant knee pain. The patient reported she had been having arthritic pains for a long time. She states that she had been seen in the ER in October for which she was diagnosed with arthritis. The patient denied ever having followed up with orthopedics at any point, had never seen a specialist in regards to her knees. Today she reports she has got bilateral knee pain that hurts her primary in the front and the middle part of her knees. She states that she has pain anytime that she bears weight. She reports when she is at rest she does not have any pain. She states she has difficulty bending her knee due to popping and clicking as well as pain and stiffness in the knees. She states she is not taking any antiinflammatories and states she has never had any injections or any other treatment for her knees. Denies any numbness, tingling or radiation symptoms. Denies any overt amount of swelling. Denies any injury or falls. REVIEW OF SYSTEMS complete nine-point review of systems was completed and is negative except what is in the HPI. PAST MEDICAL HISTORY 1. Positive for hypertension. 2. Chronic back pain. 3. Stroke. 4. Pleural effusion. 5. Congestive heart failure. 6. COPD. 7. Hypothyroid. 8. An eye injury. PAST SURGICAL HISTORY 1. Positive for gastric bypass. 2. . 3. Hernia repair. REPORTED MEDICATIONS Clonidine at home. Percocet at home. For complete list of inpatient medications please see the patient's chart. FAMILY HISTORY Positive for arthritis in multiple family. Positive for hypertension. Positive for mother and grandmother who from stroke. SOCIAL HISTORY Active smoker and states that she smokes eight cigarettes a day. Denies use of alcohol and occasionally uses marijuana for pain. PHYSICAL EXAMINATION VITALS: Temperature 98.5, pulse 67, respiratory rate 15, blood pressure 145/83, O2 saturation 97 on room air. GENERAL: A morbidly obese black female resting comfortably in no acute distress. HEAD: Normocephalic, atraumatic. EARS: Hearing intact bilaterally. 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 The left eye has pupil that is equal, round, reactive to light and extraocular motion of the left eye is intact. NECK: Supple. No evidence of lymphadenopathy. LUNGS: No auditory wheezes at bedside. No use of accessory muscles while breathing. HEART: No grade 4 murmur present. ABDOMEN: Soft, nontender. NEUROLOGIC: Cranial nerves II-XII grossly intact. MUSCULOSKELETAL: Bilateral legs with full motion of the hip, ankle and toes and no pain. She does have full sensation distally of both legs and has full strength. She does have limited motion of the knee secondary to stiffness and pain. She has notable crepitus with flexion of bilateral knees. She has tenderness to palpation of bilateral patellas and medial and lateral joint lines. I am able to achieve range of motion bilaterally from 0 to 45 degrees. Her ligamentous exam of bilateral knees is negative. IMAGING X-rays of bilateral knees from October shows significant evidence of tricompartmental osteoarthritis. Significant evidence of osteophytes in joint space, this collapsing medially. ASSESSMENT Severe tricompartmental osteoarthritis of bilateral knees. PLAN Due to the patient's health risks and inpatient status, there is no major deficit from the orthopedic standpoint on an inpatient basis. This is something that can be followed up with on an outpatient basis. I would recommend anti-inflammatory therapy with nonsteroidal anti-inflammatories. I would also recommend that on outpatient basis she follow up with orthopedics to receive potential intraarticular steroid injections. The patient does not want to get any shots when I brought this up to her. I have no treatment to offer the patient on an inpatient basis at this time. I recommend she follow up with Orthopedics on an outpatient basis. The patient does not need a follow-up with Dr. Ocampo as he does not manage total knees. I recommend she follow up with another orthopedist upon discharge if she so choses. Otherwise, Orthopedics will be signing off at this time. She may weight-bear as tolerated with no restrictions. Thank you for this consultation. We will be signing off. The above patient was reviewed and discussed with Dr. Ocampo and he agrees with the above dictation. Dictated by: Cristhian Regalado PA-C MD CJ Wilkins/KRISTINA /11:01 AM /1:12 PM
[2017-09-24] MEDS ORDERED: MORPHINE SULFATE 15 MG CONTROLLED RELEASE TAB PO ONE (14:30)
[2017-09-24 15:41] LABS: HEMOGLOBIN A1a 1.3 %; HEMOGLOBIN A1b 2.5 %; HEMOGLOBIN Ao 81.9 %; HEMOGLOBIN LA1C 2.1 %; HEMOGLOBIN P3 3.8 %
[2017-09-24] MEDS: CHLORHEXIDINE GLUCONATE 2 % 1 PACK (2 CLOTHS)(taper/protocol) TOPICAL SCH (19:48)
[2017-09-25] VITALS: BP 103/61; PULSE 60; PULSE 66; RESP 16; TEMP 97.6; O2SAT 97
[2017-09-25] MEDS: HYDROmorphone HCL PF 1 MG/ML VIAL IV PUSH PRN ×5 (00:54→19:10)
[2017-09-25] MEDS: ACETAMINOPHEN/HYDROcodone 325 MG/10 MG TAB PO PRN ×5 (03:03→22:13)
[2017-09-25 04:00] VITALS: BP 124/57; PULSE 60; PULSE 64; RESP 18; TEMP 97.9; O2SAT 100
[2017-09-25] MEDS: METOPROLOL TARTRATE 50 MG TAB PO SCH ×3 (05:41→22:13)
[2017-09-25] MEDS: metFORMIN HCL 500 MG TAB PO SCH ×2 (07:54→16:52)
[2017-09-25] MEDS: cloNIDine HCL 0.2 MG TAB PO SCH ×2 (07:54→22:15)
[2017-09-25] MEDS: NIFEdipine 60 MG SUSTAINED RELEASE TAB PO SCH (07:54)
[2017-09-25] MEDS: LISINOPRIL 10 MG TAB PO SCH (07:54)
[2017-09-25] MEDS: DOCUSATE SODIUM 50 MG/SENNA 8.6 MG TAB PO SCH ×2 (07:54→21:00)
[2017-09-25] MEDS: HEPARIN SODIUM - SQ 10,000 UNITS/ML VIAL SQ SCH ×2 (07:55→22:13)
[2017-09-25] MEDS: SODIUM CHLORIDE 0.9% FLUSH 10 ML FLUSH IV FLUSH SCH ×2 (07:55→21:00)
[2017-09-25 08:00] VITALS: BP 105/67; PULSE 62; RESP 18; TEMP 97.8; O2SAT 100
[2017-09-25 08:04] LABS: BICARBONATE 27.9 MEQ/L (21.0-32.0)
[2017-09-25] MEDS: SODIUM CHLOR 0.9% 1000 ML INJ 1,000 ML IV SCH ×2 (10:09→22:15)
[2017-09-25] MEDS: MORPHINE SULFATE 15 MG CONTROLLED RELEASE TAB PO SCH ×2 (10:09→22:10)
[2017-09-25 12:00] VITALS: BP 148/87; PULSE 63; RESP 18; TEMP 97.8; O2SAT 99
--- NOTE | 2017-09-25 13:24 | HHI.PR ---
Subjective Remarks Patient states pain is much better. Bp controlled denies cp/sob. creatinine elevated to 1.2 from 0.8. Objective Vitals Vital Signs Date Time Temp Pulse Resp B/P (MAP) Pulse Ox O2 Delivery O2 Flow Rate FiO2 09/25/17 12:00 97.8 63 18 148/87 (107) 99 09/25/17 08:00 97.8 62 18 105/67 (80) 100 09/25/17 08:00 98 Room Air 09/25/17 04:00 60 09/25/17 04:00 97.9 64 18 124/57 (79) 100 09/25/17 00:00 Room Air 09/25/17 00:00 66 09/25/17 00:00 97.6 60 16 103/61 (75) 97 09/24/17 21:30 Room Air 09/24/17 21:20 97.9 57 18 131/76 (94) 100 09/24/17 20:00 59 09/24/17 20:00 95 Room Air 09/24/17 20:00 98.3 59 16 124/66 (85) 100 09/24/17 16:00 61 09/24/17 16:00 Room Air 09/24/17 16:00 98.7 61 165/87 (113) 09/24/17 14:00 Room Air I/O 09/24/17 09/24/17 09/24/17 09/25/17 09/25/17 09/25/17 07:00 15:00 23:00 07:00 15:00 23:00 Intake Total 500 ml 650 ml Output Total 1300 ml 4 ml Balance -800 ml 646 ml Intake Oral 500 ml 650 ml Output Urine Total 1300 ml 4 ml Result Diagram: 09/24/17 0558 09/25/17 0655 Imaging Last Impressions Knee X-Ray 09/23/17 0000 Signed Impressions: Service Date/Time: Saturday, September 23, 2017 21:21 - CONCLUSION: 1. Very severe osteoarthritis involving the patellofemoral joint and severe osteoarthritis involving the femoral tibial joint. 2. No acute fracture or dislocation. Buzz Victor MD Chest X-Ray 09/22/17 0042 Signed Impressions: Service Date/Time: Friday, September 22, 2017 01:05 - CONCLUSION: No acute cardiopulmonary abnormality is identified. Lobo Terrell MD Objective Remarks GENERAL: This is a well-nourished, well-developed patient, nad. SKIN: No rashes, ecchymoses or lesions. Cool and dry. HEAD: Atraumatic. Normocephalic. No temporal or scalp tenderness. EYES: Pupils equal round and reactive. Extraocular motions intact. No scleral icterus. No injection or drainage. ENT: Nose without bleeding, purulent drainage or septal hematoma. Throat without erythema, tonsillar hypertrophy or exudate. Uvula midline. Airway patent. NECK: Trachea midline. No JVD or lymphadenopathy. Supple, nontender, no meningeal signs. CARDIOVASCULAR: Regular rate and rhythm without murmurs, gallops, or rubs. RESPIRATORY: Clear to auscultation. Breath sounds equal bilaterally. No wheezes , rales, or rhonchi. GASTROINTESTINAL: Abdomen soft, non-tender, nondistended. No hepato-splenomegaly , or palpable masses. No guarding. MUSCULOSKELETAL: Extremities without clubbing, cyanosis, or edema. Tenderness to palpation of bilateral knees. No edema noted. No calf tenderness. Negative Homans sign bilaterally. NEUROLOGICAL: Awake and alert. Cranial nerves II through XII intact. Motor and sensory grossly within normal limits. Five out of 5 muscle strength in all muscle groups. Normal Medications and IVs Current Medications Medications (Trade) Dose Ordered Sig/Mary Route Start Time Stop Time Status Last Admin (Procardia Xl) 60 mg DAILY PO 09/23/17 09:00 09/25/17 07:54 (Lopressor) 50 mg Q8HR PO 09/22/17 14:00 09/25/17 13:03 (NS Flush) 2 ml UNSCH PRN IV FLUSH 09/22/17 06:45 (NS Flush) 2 ml BID IV FLUSH 09/22/17 09:00 09/25/17 07:55 (Zofran Inj) 4 mg Q6H PRN IVP 09/22/17 06:45 09/23/17 23:11 (Heparin Inj) 5,000 units Q12H SQ 09/22/17 09:00 09/25/17 07:55 (Tylenol) 650 mg Q6H PRN PO 09/22/17 06:45 ([place] 5-325 Mg) 1 tab Q4H PRN PO 09/22/17 06:45 12/3/17 18:51 ([place] 10-325 Mg) 1 tab Q4H PRN PO 09/22/17 06:45 09/25/17 13:03 (Adry-Colace) 1 tab BID PO 09/22/17 09:00 09/25/17 07:54 (Milk Of Magnesia Liq) 30 ml Q12H PRN PO 09/22/17 06:45 (Senokot) 17.2 mg Q12H PRN PO 09/22/17 06:45 (Dulcolax Supp) 10 mg DAILY PRN RECTAL 09/22/17 06:45 (Lactulose Liq) 30 ml DAILY PRN PO 09/22/17 06:45 (Vasotec Inj) 1.25 mg Q6H PRN IV PUSH 09/22/17 09:45 (Catapres) 0.1 mg Q6H PRN PO 09/22/17 11:15 (Catapres) 0.2 mg BID PO 09/22/17 12:30 09/25/17 07:54 Labetalol HCl 500 mg/Sodium Chloride 250 ml @ 60 mls/hr TITRATE PRN IV 09/22/17 13:00 09/22/17 15:13 Miscellaneous Information Patient in critical care unit? Ass... [id number] .XX 09/22/17 20:00 09/22/17 20:00 (Chlorhexidine 2% Cloth) 3 pack DAILY@04 TOPICAL 09/23/17 04:00 09/27/17 04:01 09/24/17 19:48 (Chlorhexidine 2% Cloth) 3 pack UNSCH PRN TOPICAL 09/22/17 20:00 09/27/17 19:58 (Prinivil) 10 mg DAILY PO 09/23/17 09:45 09/25/17 07:54 (Dilaudid Pf Inj) 1 mg Q4H PRN IV PUSH 09/23/17 16:30 09/25/17 09:44 (Oramorph Sr) 30 mg Q12H PO 09/24/17 22:00 09/25/17 10:09 (Glucophage) 500 mg BIDPC PO 09/25/17 09:00 09/25/17 07:54 Sodium Chloride 1,000 ml @ 100 mls/hr Q10H IV 09/25/17 09:30 09/25/17 10:09 A/P Problem List: (1) Hypertensive emergency ICD Code: I16.1 - Hypertensive emergency Plan: The patient presented with hypertensive emergency is here with chest pain or shortness of breath secondary to medication noncompliance. EKG on admission and reviewed by me shows sinus tachycardia with nonspecific T-wave abnormalities, however no ST segment elevations or depressions. The patient was given several antihypertensives in the emergency department and also in the medical floor admission, however the patient's blood pressure was in the 220s systolic. Rapid response team was activated and the patient was immediately transferred to the intensive care unit and started on labetalol drip. Cardiac enzymes were monitored and negative 2. Cardiology consulted. Appreciate recommendations. Cardiology recommended continuation of nifedipine, metoprolol tartrate, clonidine and addition of growth site 25 minutes by mouth daily and lisinopril 10 mg by mouth daily. She was placed on Nitropaste initially which was later discontinued. (2) Morbid obesity with BMI of 50.0-59.9, adult ICD Code: E66.01 - Morbid (severe) obesity due to excess calories; Z68.43 - Body mass index (BMI) 50-59.9 , adult Plan: Advised weight loss. (3) Noncompliance with medication regimen ICD Code: Z91.14 - Patient's other noncompliance with medication regimen Plan: Stressed on the importance of taking medications. (4) SOB (shortness of breath) ICD Code: R06.02 - Shortness of breath Plan: Likely secondary to hypertensive emergency. bp better. Patient with good o2 sat on room air. (5) Hypokalemia ICD Code: E87.6 - Hypokalemia Plan: Replaced potassium orally. Continue to monitor BMP and replace potassium as needed. resolved (6) Knee pain, bilateral ICD Code: M25.561 - Pain in right knee; M25.562 - Pain in left knee Plan: Patient with severe pain in bilateral knees. Upon review of medical records the patient has had knee x-rays on 2016 which showed severe bilateral osteoarthritis. The right knee x-ray also described marked osteophytosis of the patellofemoral compartment. Posterior joint bodies and change. No acute fracture. I will give 1 mg of IV Dilaudid and start the patient on long-acting Oramorph for pain control., I will also repeat knee x-rays bilaterally and consult orthopedic surgery for further recommendations. Continue [place] as well for pain control. 09/24 still requiring IV Dilaudid - Increase Oramorph to 30 mg po bid, continue Percocet and IV Dilaudid for breakthrough pain. Patient will require outpatient pain management referral. Orthopedic recommendations pending. 09/25 pain controlled. Continue Oramorph 30 mg po bid as well as Percocet and IV Dilaudid for breakthrough pain. The patient advised to follow-up with pain management. Patient seen by orthopedic surgery, the pubic outpatient follow-up for steroid injections recommended. (7) Hyperglycemia ICD Code: R73.9 - Hyperglycemia, unspecified Plan: Patient's blood sugars in the 150s. Hemoglobin A1c obtained on 05/11/15 was 5.9. I will recheck hemoglobin A1c. We'll place on SSI with insulin NovoLog and monitor Accu-Cheks. 09/25 the patient has new onset diabetes mellitus. Hemoglobin A1c 7.9. Will consult cushion spring assembler and start the patient on metformin 500 mg by mouth twice a day. (8) Leukocytosis ICD Code: D72.829 - Elevated white blood cell count, unspecified Plan: Likely stress related. WBC 14.0 on admission, trending down. Continue to monitor CBC with differential. Patient is a afebrile and without any signs of infection. resolved. (9) CATHLEEN (acute kidney injury) ICD Code: N17.9 - Acute kidney failure, unspecified Plan: Pattern is trending up to 1.2. Likely secondary to prerenal azotemia secondary to dehydration due to pain. I will place on IV normal saline and repeat a BMP later today. If creatinine improving then will discharge home. Assessment and Plan DVT prophylaxis: Continue SCDs, heparin subcutaneously. Discharge Planning Discharge pending diabetes education and improvement in creatinine. Problem Qualifiers (1) Knee pain, bilateral: Qualified Codes: M25.561 - Pain in right knee; M25.562 - Pain in left knee; G89.29 - Other chronic pain (2) Leukocytosis: Qualified Codes: D72.829 - Elevated white blood cell count, unspecified Theodore Aleman MD Sep 25, 2017 13:24
[2017-09-25] MEDS: ATORVASTATIN 10 MG TAB PO SCH (13:30)
[2017-09-25 16:00] VITALS: BP 151/69; PULSE 56; PULSE 60; RESP 18; TEMP 98.7; O2SAT 95
[2017-09-25 19:10] LABS: BICARBONATE 26.3 MEQ/L (21.0-32.0); HDL CHOLESTEROL 33.1 MG/DL (40.0-60.0)
[2017-09-25 19:13] LABS: POTASSIUM 4.9 MEQ/L (3.5-5.1)
[2017-09-25 20:00] VITALS: BP 158/77; PULSE 60; PULSE 63; RESP 18; TEMP 98.4; O2SAT 97
[2017-09-26] VITALS: BP 137/76; PULSE 58; PULSE 60; RESP 18; TEMP 98.6; O2SAT 100
[2017-09-26] MEDS: HYDROmorphone HCL PF 1 MG/ML VIAL IV PUSH PRN ×2 (00:53→07:44)
[2017-09-26 04:00] VITALS: BP 146/63; PULSE 59; PULSE 64; RESP 18; TEMP 98.4; O2SAT 94
[2017-09-26] MEDS: CHLORHEXIDINE GLUCONATE 2 % 1 PACK (2 CLOTHS)(taper/protocol) TOPICAL SCH (04:00)
[2017-09-26] MEDS: ACETAMINOPHEN/HYDROcodone 325 MG/10 MG TAB PO PRN ×3 (04:58→17:23)
[2017-09-26] MEDS: METOPROLOL TARTRATE 50 MG TAB PO SCH ×2 (05:05→17:23)
[2017-09-26] MEDS: SODIUM CHLOR 0.9% 1000 ML INJ 1,000 ML IV SCH ×2 (05:43→11:31)
[2017-09-26 08:00] VITALS: BP 165/72; PULSE 63; RESP 16; TEMP 97.8; O2SAT 96
[2017-09-26] MEDS: NIFEdipine 60 MG SUSTAINED RELEASE TAB PO SCH (08:43)
[2017-09-26] MEDS: metFORMIN HCL 500 MG TAB PO SCH ×2 (08:43→17:23)
[2017-09-26] MEDS: ATORVASTATIN 10 MG TAB PO SCH (08:44)
[2017-09-26] MEDS: LISINOPRIL 10 MG TAB PO SCH (08:44)
[2017-09-26] MEDS: DOCUSATE SODIUM 50 MG/SENNA 8.6 MG TAB PO SCH (08:44)
[2017-09-26] MEDS: HEPARIN SODIUM - SQ 10,000 UNITS/ML VIAL SQ SCH (08:45)
[2017-09-26 12:00] VITALS: BP 164/74; PULSE 56; RESP 16; TEMP 98; O2SAT 95
[2017-09-26] MEDS: cloNIDine HCL 0.2 MG TAB PO SCH (12:24)
[2017-09-26] MEDS: MORPHINE SULFATE 15 MG CONTROLLED RELEASE TAB PO SCH (12:24)
[2017-09-26 16:00] VITALS: BP 156/83; PULSE 66; PULSE 77; RESP 16; TEMP 97.9; O2SAT 100
[2017-09-26 17:13] LABS: HEMATOCRIT 44.8 % (35.0-46.0); MEAN CELL VOLUME 87.9 FL (80.0-100.0); MEAN CORPUSCULAR HEMOGLOBIN 27.9 PG (27.0-34.0); MEAN CORPUSCULAR HGB CONC 31.7 % (32.0-36.0); PLATELET COUNT 213 TH/MM3 (150-450); RED BLOOD COUNT 5.09 MIL/MM3 (4.00-5.30); RED CELL DISTRIBUTION WIDTH 16.1 % (11.6-17.2); REVIEW FLAG FINAL
[2017-09-26 17:21] LABS: BICARBONATE 27.6 MEQ/L (21.0-32.0); POTASSIUM 4.8 MEQ/L (3.5-5.1)
[2017-09-26] MEDS ORDERED: LIPI10TA PO (17:38)
[2017-09-26] MEDS ORDERED: NIFE60TA8 PO (17:38)
[2017-09-26] MEDS ORDERED: METO-309 PO (17:38)
[2017-09-26] MEDS ORDERED: LISI10TA3 PO (17:38)
[2017-09-26] MEDS ORDERED: HYDR-3583 PO (17:41)
[2017-09-26] MEDS ORDERED: METF850T PO (17:43)
[2017-09-26] MEDS ORDERED: CLON.2 PO (17:46)
--- NOTE | 2017-09-26 17:47 | HHI.DCPOC ---
Discharge Care Plan Diagnosis: (1) Osteoarthritis (2) Morbid obesity with BMI of 60.0-69.9, adult (3) Acute renal failure (4) Malignant hypertension (5) PNA (pneumonia) (6) Knee pain, bilateral Goals to Promote Your Health * To prevent worsening of your condition and complications * To maintain your health at the optimal level Directions to Meet Your Goals Take your medications as prescribed Follow your dietary instruction Follow activity as directed Keep your appointments as scheduled Take your immunizations and boosters as scheduled If your symptoms worsen call your PCP, if no PCP go to Urgent Care Center or Emergency Room Smoking is Dangerous to Your Health. Avoid second hand smoke Call the 24-hour hour crisis hotline for domestic abuse at Theodore Aleman MD Sep 26, 2017 17:47
[2017-09-26] MEDS ORDERED: MELO15TA20 PO (17:48)
--- NOTE | 2017-09-26 17:52 | HHI.DS ---
Discharge Summary Admission Date Sep 22, 2017 at 06:24 Discharge Date: Sep 26, 2017 Admitting Diagnosis htn urgency/ noncompliance (1) Hypertensive emergency ICD Code: I16.1 - Hypertensive emergency (2) Morbid obesity with BMI of 50.0-59.9, adult ICD Code: E66.01 - Morbid (severe) obesity due to excess calories; Z68.43 - Body mass index (BMI) 50-59.9 , adult (3) Noncompliance with medication regimen ICD Code: Z91.14 - Patient's other noncompliance with medication regimen (4) SOB (shortness of breath) ICD Code: R06.02 - Shortness of breath (5) Hypokalemia ICD Code: E87.6 - Hypokalemia (6) Knee pain, bilateral ICD Code: M25.561 - Pain in right knee; M25.562 - Pain in left knee (7) Hyperglycemia ICD Code: R73.9 - Hyperglycemia, unspecified (8) Leukocytosis ICD Code: D72.829 - Elevated white blood cell count, unspecified (9) CATHLEEN (acute kidney injury) ICD Code: N17.9 - Acute kidney failure, unspecified Brief History - From Admission This is a 52-year-old female with past medical history of hypertension, chronic back pain, also arthritis, CHF, COPD, hypothyroidism who presented to [facility] complaining of chest pain, short of breath, bilateral knee pain, and chronic pain syndrome. The patient states that she has been out of her medications for approximately a week which included clonidine and Percocet. Patient is actively having her chest and complaining of chest pain, in moderate distress due to pain and shortness of breath. The patient's blood pressure during my interview is very elevated in the 220s systolic. The patient had been administered several antihypertensive medications including nifedipine, metoprolol tartrate, clonidine without improvement of blood pressure. CBC/BMP: 09/26/17 1641 09/26/17 1641 Significant Findings Laboratory Tests Test 09/24/17 05:58 09/25/17 06:55 09/25/17 17:13 09/26/17 16:41 Random Glucose 131 MG/DL (74-106) 133 MG/DL (74-106) 156 MG/DL (74-106) 118 MG/DL (74-106) Sodium Level 134 MEQ/L (136-145) 134 MEQ/L (136-145) Hemoglobin A1c 7.9 % (4.3-6.0) Creatinine 1.20 MG/DL (0.50-1.00) 1.24 MG/DL (0.50-1.00) Estimat Glomerular Filtration Rate 57 ML/MIN (>89) 55 ML/MIN (>89) 75 ML/MIN (>89) Blood Urea Nitrogen 20 MG/DL (7-18) Triglycerides Level 201 MG/DL (42-150) LDL Cholesterol 100 MG/DL (0-99) HDL Cholesterol 33.1 MG/DL (40.0-60.0) Mean Corpuscular Hemoglobin Concent 31.7 % (32.0-36.0) Imaging Last Impressions Knee X-Ray 09/23/17 0000 Signed Impressions: Service Date/Time: Saturday, September 23, 2017 21:21 - CONCLUSION: 1. Very severe osteoarthritis involving the patellofemoral joint and severe osteoarthritis involving the femoral tibial joint. 2. No acute fracture or dislocation. Buzz Victor MD Chest X-Ray 09/22/17 0042 Signed Impressions: Service Date/Time: Friday, September 22, 2017 01:05 - CONCLUSION: No acute cardiopulmonary abnormality is identified. Lobo Terrell MD PE at Discharge GENERAL: This is a well-nourished, well-developed patient, nad. SKIN: No rashes, ecchymoses or lesions. Cool and dry. HEAD: Atraumatic. Normocephalic. No temporal or scalp tenderness. EYES: Pupils equal round and reactive. Extraocular motions intact. No scleral icterus. No injection or drainage. ENT: Nose without bleeding, purulent drainage or septal hematoma. Throat without erythema, tonsillar hypertrophy or exudate. Uvula midline. Airway patent. NECK: Trachea midline. No JVD or lymphadenopathy. Supple, nontender, no meningeal signs. CARDIOVASCULAR: Regular rate and rhythm without murmurs, gallops, or rubs. RESPIRATORY: Clear to auscultation. Breath sounds equal bilaterally. No wheezes , rales, or rhonchi. GASTROINTESTINAL: Abdomen soft, non-tender, nondistended. No hepato-splenomegaly , or palpable masses. No guarding. MUSCULOSKELETAL: Extremities without clubbing, cyanosis, or edema. Tenderness to palpation of bilateral knees. No edema noted. No calf tenderness. Negative Homans sign bilaterally. NEUROLOGICAL: Awake and alert. Cranial nerves II through XII intact. Motor and sensory grossly within normal limits. Five out of 5 muscle strength in all muscle groups. Normal Pt Condition on Discharge: Stable Discharge Disposition: Discharge Home Discharge Time: > 30 minutes Discharge Instructions DIET: Follow Instructions for: Heart Healthy Diet, Low Sodium Diet Activities you can perform: Regular-No Restrictions Activities to Avoid: Prolonged Standing, Strenuous Activity Follow up Referrals: Orthopedics - 2 Weeks PCP Follow-up - 1 Week New Medications: Meloxicam (Meloxicam) 15 Mg Tab 15 MG PO DAILY for Arthritis Pain, #30 TAB 0 Refills Metformin (Metformin) 850 Mg Tab 850 MG PO BIDPC for Blood Sugar Management, #62 TAB 0 Refills Atorvastatin (Lipitor) 10 Mg Tab 10 MG PO DAILY for Cholesterol Management, #31 TAB Clonidine (Catapres) 0.2 Mg Tab 0.2 MG PO BID for Blood Pressure Management, #62 TAB Hydrocodone/Acetaminophen (Hydrocodone-Acetamin 10-325 mg) 10 Mg-325 Mg Tablet 1 TAB PO Q4H PRN for PAIN SCALE 1 TO 10, #30 TAB Lisinopril (Lisinopril) 10 Mg Tab 10 MG PO DAILY for Blood Pressure Management, #31 TAB Metoprolol Tartrate (Lopressor) 50 Mg Tab 50 MG PO Q8HR for Blood Pressure Management, #93 TAB Nifedipine ER 24 HR (Nifedipine ER 24 HR) 60 Mg Tab 60 MG PO DAILY for Blood Pressure Management, #31 TAB Discontinued Medications: Oxycodone-Acetaminophen (Percocet) 5-325 mg Tab 1 TAB PO BID PRN for PAIN, TAB 0 Refills Theodore Aleman MD Sep 26, 2017 17:52
[2017-09-26] MEDS ORDERED: MELOXICAM 15 MG TAB PO ONE (18:00)
== END 2017-09-26 19:15 | disposition home or self-care (01) | DRG 305 ==
LOC: NEPC 00:24 → NEDA 06:24 → N04B 08:22 → HIME 12:59 → N04B 09-24 21:34
PROVIDERS: ADMIT Hospitalist; ATTEND Hospitalist
DX: I16.1 Hypertensive emergency (principal); N17.9 Acute kidney failure, unspecified; I50.9 Heart failure, unspecified; E11.65 Type 2 diabetes mellitus with hyperglycemia; Z68.44 Body mass index [BMI] 60.0-69.9, adult; Z99.81 Dependence on supplemental oxygen; E66.01 Morbid (severe) obesity due to excess calories; J44.9 Chronic obstructive pulmonary disease, unspecified; G89.4 Chronic pain syndrome; I11.0 Hypertensive heart disease with heart failure; E03.9 Hypothyroidism, unspecified; F12.90 Cannabis use, unspecified, uncomplicated; E87.6 Hypokalemia; D72.829 Elevated white blood cell count, unspecified; M17.0 Bilateral primary osteoarthritis of knee; E86.0 Dehydration; E78.5 Hyperlipidemia, unspecified; K21.9 Gastro-esophageal reflux disease without esophagitis; R00.0 Tachycardia, unspecified; F17.210 Nicotine dependence, cigarettes, uncomplicated; F41.8 Other specified anxiety disorders; Z71.3 Dietary counseling and surveillance; Z86.73 Personal history of transient ischemic attack (TIA), and cerebral infarction without residual deficits; Z91.14 Patient's other noncompliance with medication regimen; Z98.84 Bariatric surgery status
CPT/HCPCS: 71010; 73560; 76937; 80048; 80053; 80061; 81001; 82550; 83036; 83735; 83880; 84484; 85025; 85027; 85610; 85730; 87641; 93005; 96374; 96375; 96376; J1170; J1644; J2270; J2405; J7030

== ENCOUNTER 2017-10-02 14:22 | Emergency (ER) | payer MEDICAID ==
[~2017-10-02 14:22] MED LIST changes: +CLON.2 PO; -CLON0.2T PO; +HYDR-3583 PO; +LIPI10TA PO; +LISI10TA3 PO; +MELO15TA20 PO; +METF850T PO; +METO-309 PO; +NIFE60TA8 PO
[2017-10-02 14:36] VITALS: BP 89/54; PULSE 64; RESP 18; TEMP 99; O2SAT 97
[2017-10-02] MEDS ORDERED: oxyCODONE/ACETAMINOPHEN 10 MG/325 MG TAB PO ONE (15:00)
[2017-10-02 15:03] VITALS: BP 105/56; PULSE 65; RESP 18; O2SAT 99
--- NOTE | 2017-10-02 15:54 | RADRPT ---
EXAM DATE/TIME: 10/02/2017 15:17 [facility] COMPARISON: No previous studies available for comparison. INDICATIONS : Right arm pain and swelling. MEDICAL HISTORY : Congestive heart failure. Hypercholesterolemia. Hernia, inguinal. Blind right eye. CVA. Chest pain. H TN. COPD. Dyspnea. Ulcer. Morbid obesity. Ulcer. Hiatal hernia. GERD. Polyuria. Arthritis. Diabetes. Depression. Anxiety. MRSA. Acinetobacter baumannii. SURGICAL HISTORY : section. Tubal ligation. Right eye removal from [facility]. Gastric bypass. Hernia repair x3. ENCOUNTER: Initial ACUITY: 1 day PAIN SCORE: 5/10 LOCATION: Right arm. FINDINGS: There is occlusive thrombus extending from the central brachial and basilic veins to the forearm. The cephalic vein is patent. More centrally, the axillary and subclavian veins are patent. The internal jugular vein is patent. CONCLUSION: 1. Occlusive thrombus extending from the central brachial and basilic veins to the forearm. Hussain Rojas MD on October 02, 2017 at 15:49 Board Certified Radiologist. This report was verified electronically.
--- NOTE | 2017-10-02 16:00 | PD ---
HPI Chief Complaint: Pain: Acute or Chronic Time Seen by Provider: 14:45 Travel History International Travel<30 days: No Contact w/Intl Traveler<30days: No Traveled to known affect area: No History of Present Illness HPI 52-year-old female that presents to the ED for evaluation of right arm pain and swelling. Per patient she was admitted recently and discharged on the weekend for hypertensive emergency. Patient states that she had an IV in the area and was doing fine until 2 days after being discharged she developed the pain. Patient called the ambulance and was brought here for evaluation of this. Per patient the pain is sharp and is 7 out of 10. Per patient he does radiate to the shoulder as well as to the left arm. She denies any chest pain or shortness of breath. She does have a chronic history of chronic pain and has been seen here in this hospital multiple times for chronic pain. She denies any injuries or trauma but any kind. She specifically requested pain medication. She has no allergies to medication. No other medical issues at this time. Denies any recent travel. Denies taking any blood thinners. PFSH Past Medical History Arthritis: Yes Asthma: No Autoimmune Disease: No Blood Disorders: No Anxiety: Yes Depression: Yes Heart Rhythm Problems: No Cancer: No Cardiovascular Problems: Yes High Cholesterol: Yes Chemotherapy: No Chest Pain: Yes Congestive Heart Failure: Yes COPD: Yes (Wears Home 02 ) Cerebrovascular Accident: Yes Diabetes: Yes Patient Takes Glucophage: Yes Diminished Hearing: No Endocrine: No Gastrointestinal Disorders: Yes (MORBID OBESITY) GERD: Yes Genitourinary: Yes (Polyuria) Hiatal Hernia: Yes Heparin Induced Thrombocytopen: No Hypertension: Yes Immune Disorder: No Inguinal Hernia: Yes Implanted Vascular Access Dvce: No Kidney Stones: No Musculoskeletal: Yes Neurologic: Yes (Stroke 2004) Psychiatric: Yes Reproductive: No Respiratory: Yes Immunizations Current: No Migraines: No Radiation Therapy: No Renal Failure: No Seizures: No Sickle Cell Disease: No Sleep Apnea: No Thyroid Disease: No Ulcer: Yes ?: Not Menopausal: Yes : 3 Para: 3 Miscarriage: 0 : 0 Tubal Ligation: Yes Past Surgical History Abdominal Surgery: Yes (Gastric bypass, hernia repair x3) AICD: No Arteriovenous Shunt: No Cardiac Surgery: No Section: Yes Ear Surgery: No Endocrine Surgery: No Eye Surgery: Yes (Right eye removed from [facility] 20 years ago) Genitourinary Surgery: No Gynecologic Surgery: Yes (C-Sectionx3, Tubal ligation) Joint Replacement: No Neurologic Surgery: No Oral Surgery: No Pacemaker: No Thoracic Surgery: No Other Surgery: Yes (GASTRIC BYPASS 1996) Social History Alcohol Use: No Tobacco Use: Yes (1 PPD) Substance Use: No (DENIES) Allergies-Medications (Allergen,Severity, Reaction): Coded Allergies: No Known Allergies (Unverified Allergy, Unknown, 09/22/17) Reported Meds & Prescriptions Reported Meds & Active Scripts Active Ibuprofen 600 Mg Tab 600 Mg PO Q8H PRN Percocet (Oxycodone-Acetaminophen) 5-325 mg Tab 1 Tab PO Q6H PRN Meloxicam 15 Mg Tab 15 Mg PO DAILY Catapres (Clonidine) 0.2 Mg Tab 0.2 Mg PO BID Metformin (Metformin HCl) 850 Mg Tab 850 Mg PO BIDPC Hydrocodone-Acetamin 10-325 mg (Hydrocodone/Acetaminophen) 10 Mg-325 Mg Tablet 1 Tab PO Q4H PRN Lisinopril 10 Mg Tab 10 Mg PO DAILY Nifedipine ER 24 HR (Nifedipine) 60 Mg Tab 60 Mg PO DAILY Lopressor (Metoprolol Tartrate) 50 Mg Tab 50 Mg PO Q8HR Lipitor (Atorvastatin Calcium) 10 Mg Tab 10 Mg PO DAILY Review of Systems Except as stated in HPI: all other systems reviewed are Neg Physical Exam Narrative GENERAL: SKIN: Warm and dry. HEAD: Atraumatic. Normocephalic. EYES: Pupils equal and round. No scleral icterus. No injection or drainage. ENT: No nasal bleeding or discharge. Mucous membranes pink and moist. Tongue is midline. No uvula deviation. NECK: Trachea midline. No JVD. CARDIOVASCULAR: Regular rate and rhythm. RESPIRATORY: No accessory muscle use. Clear to auscultation. Breath sounds equal bilaterally. GASTROINTESTINAL: Abdomen soft, non-tender, nondistended. Hepatic and splenic margins not palpable. MUSCULOSKELETAL: Extremities without clubbing, cyanosis, or edema. No obvious deformities. Full range of motion of the upper and lower extremities bilaterally. 2+ pulses bilaterally. Patient does have reproducible pain on the right arm with minor swelling compared to the left. Somewhat hard to assess as patient is morbidly obese on both of her arms or swelling and this is more likely chronic secondary to obesity. No obvious lymphadenopathy. 5/5 strength bilaterally. Hard to assess flexion of wrist as patient will not flex it for me. But appears to be able to do it on her own. NEUROLOGICAL: Awake and alert. No obvious cranial nerve deficits. Motor grossly within normal limits. Five out of 5 muscle strength in the arms and legs. Normal speech. PSYCHIATRIC: Appropriate mood and affect; insight and judgment normal. Data Data Last Documented VS Vital Signs Date Time Temp Pulse Resp B/P (MAP) Pulse Ox O2 Delivery O2 Flow Rate FiO2 10/02/17 15:03 65 18 105/56 (72) 99 Room Air 10/02/17 14:36 99.0 Orders Orders Us Arm Venous Doppler (10/02/17 14:50) Forearm (2vws) (10/02/17 14:50) Oxycodone-Acetamin 10-325 Mg (Percocet 1 (10/02/17 15:00) Chest, Single Ap (10/02/17 ) [facility] Medical Decision Making Medical Screen Exam Complete: Yes Emergency Medical Condition: Yes Medical Record Reviewed: Yes Interpretation(s) Last Impressions Upper Extremity Ultrasound 10/02/17 1450 Signed Impressions: Service Date/Time: Saturday, October 02, 2017 15:17 - CONCLUSION: 1. Occlusive thrombus extending from the central brachial and basilic veins to the forearm. Hussain Rojas MD Differential Diagnosis DVT versus acute on chronic pain versus chronic pain versus muscle strain versus radiculopathy Narrative Course 52-year-old female that presents to the ED for evaluation of right arm pain. Patient was properly examined and was found to have signs and symptoms of unclear etiology at this time. Imaging was ordered. patient given one percocet by mouth. Imaging showed thrombosis. Case was discussed in my attending Dr. Carson who recommends a steak with Dr. Ruff to see whether patient needs anticoagulation. I spoke personally with Dr. Larsen who reviewed the ultrasound report and recommends anti-inflammatories as well as warm compresses and follow-up outpatient. He recommends against anticoagulation. Patient was reassured. My attending recommends also given patient some pain medication secondary to the patient's pain level. Patient was given a short prescription for Percocet. Patient given prescription for ibuprofen. warm compresses. Close follow-up with PCP. See ED worsening symptoms. Diagnosis Primary Impression: Superficial venous thrombosis of arm Qualified Codes: I82.611 - Acute embolism and thrombosis of superficial veins of right upper extremity Patient Instructions: Narcotic given in the ED, General Instructions Additional Instructions: Take medications as prescribed. Follow-up with PCP. See ED for any worsening symptoms. Do not drink or drive while taking pain medication. Apply heat as needed for pain. It will take some time for the pain to improve. Follow up with your doctor. Med/Other Pt SpecificInfo: Prescription(s) given Scripts Ibuprofen (Ibuprofen) 600 Mg Tab 600 MG PO Q8H Y for PAIN, #20 TAB 0 Refills Prov: Ubaldo Carson MD 10/02/17 Oxycodone-Acetaminophen (Percocet) 5-325 mg Tab 1 TAB PO Q6H Y for PAIN, #10 TAB 0 Refills Prov: Ubaldo Carson MD 10/02/17 Disposition: 01 DISCHARGE HOME Condition: Stable Ramses Lora Oct 02, 2017 16:00
--- NOTE | 2017-10-02 16:19 | RADRPT ---
EXAM DATE/TIME: 10/02/2017 16:06 [facility] COMPARISON: KNEE RIGHT LTD (1 OR 2 VWS), September 23, 2017, 21:21. INDICATIONS : Short of breath. MEDICAL HISTORY : Hypertension. Diabetes mellitus type II. Chronic obstructive pulmonary disease. SURGICAL HISTORY : None. ENCOUNTER: Initial ACUITY: 4 - 6 days PAIN SCORE: 10/10 LOCATION: Bilateral chest FINDINGS: A single view of the chest demonstrates the lungs to be symmetrically aerated without evidence of mas s, infiltrate or effusion. The cardiomediastinal contours are unremarkable. Osseous structures are intact. CONCLUSION: 1. No acute cardiopulmonary findings. Wes Martinez MD on October 02, 2017 at 16:16 Board Certified Radiologist. This report was verified electronically.
[2017-10-02] MEDS ORDERED: IBUP-232 PO (16:21)
[2017-10-02] MEDS ORDERED: PERC5TAB12 PO (16:21)
[2017-10-02] MEDS ORDERED: KETOROLAC TROMETHAMINE 60 MG/2 ML (IM) VIAL IM ONE (16:30)
--- NOTE | 2017-10-02 16:34 | RADRPT ---
EXAM DATE/TIME: 10/02/2017 16:11 [facility] COMPARISON: CHEST SINGLE AP, October 02, 2017, 16:06. INDICATIONS : Right forearm pain with no known injury. MEDICAL HISTORY : None. SURGICAL HISTORY : None. ENCOUNTER: Initial ACUITY: 1 day PAIN SCORE: 10/10 LOCATION: Right forearm. FINDINGS: There is partial visualization of the elbow. There degenerative changes within the elbow joint. The r adius and ulna appear intact. No foreign body is seen. CONCLUSION: 1. No acute fracture of the radius or the ulna identified. 2. Degenerative changes within the elbow. Wes Martinez MD on October 02, 2017 at 16:32 Board Certified Radiologist. This report was verified electronically.
[2017-10-02] MEDS ORDERED: CLON0.2T PO (16:50)
[2017-10-02] MEDS ORDERED: GABA100C4 PO (16:50)
[2017-10-02 17:18] VITALS: RESP 18
== END 2017-10-02 18:00 | disposition home or self-care (01) ==
LOC: NEPC 14:22
DX: I82.611 Acute embolism and thrombosis of superficial veins of right upper extremity (principal); E66.01 Morbid (severe) obesity due to excess calories; G89.29 Other chronic pain; M19.90 Unspecified osteoarthritis, unspecified site; F41.9 Anxiety disorder, unspecified; F32.9 Major depressive disorder, single episode, unspecified; E78.00 Pure hypercholesterolemia, unspecified; I11.0 Hypertensive heart disease with heart failure; I50.9 Heart failure, unspecified
CPT/HCPCS: 71010; 73090; 93971; 96372; 99284; J1885